=== PATIENT | female | born 1980 | race Caucasian/White ===

== ENCOUNTER 2023-07-27 00:46 | Emergency (ER) | payer OTHER ==
[~2023-07-27] VITALS: Ht 167.6 cm; Wt 146.6 kg
[2023-07-27] MEDS ORDERED: BASA100I SC (07:15)
[2023-07-27] MEDS ORDERED: FURO80TA2 PO (07:15)
[2023-07-27] MEDS ORDERED: NOVOINJ3 SC (07:15)
[2023-07-27] MEDS ORDERED: LEVO112T2 PO (07:15)
[2023-07-27] MEDS ORDERED: cefTRIAXone SOD 1GM VIAL IM ONE (08:00)
[2023-07-27] MEDS ORDERED: LIDOCAINE 1% SDV 5ML VIAL DILUENT ONE (08:00)
[2023-07-27] MEDS ORDERED: GABAPENTIN 300 MG CAP PO ONE (08:00)
[2023-07-27] MEDS ORDERED: BOOSTRIX VACCINE (TETANUS/DIPHTH/ACEL. PERTUSSIS) 0.5ML SYR IM ONE (08:00)
[2023-07-27] MEDS ORDERED: ACETAMINOPHEN 500 MG TAB PO ONE (08:00)
[2023-07-27] MEDS ORDERED: DOXY-443 PO (08:08)
[2023-07-27 08:18] VITALS: BP 148/67; TEMP 97.3; O2SAT 96
== END 2023-07-27 09:00 | disposition home or self-care (01) ==
LOC: M ED 00:46
DX: S91.331A Puncture wound without foreign body, right foot, initial encounter (principal); W26.8XXA Contact with other sharp object(s), not elsewhere classified, initial encounter; Y92.89 Other specified places as the place of occurrence of the external cause; Y93.01 Activity, walking, marching and hiking; Y99.8 Other external cause status; E11.40 Type 2 diabetes mellitus with diabetic neuropathy, unspecified; E03.9 Hypothyroidism, unspecified; Z88.8 Allergy status to other drugs, medicaments and biological substances; Z79.4 Long term (current) use of insulin; Z79.899 Other long term (current) drug therapy
CPT/HCPCS: 90715; 96372; 99283; J0696

== ENCOUNTER 2023-08-22 01:46 | Emergency (ER) | payer OTHER ==
[~2023-08-22] VITALS: Ht 167.6 cm; Wt 145.4 kg
[~2023-08-22 01:46] MED LIST: BASA100I SC; DOXY-443 PO; FURO80TA2 PO; LEVO112T2 PO; NOVOINJ3 SC
[2023-08-22 09:44] LABS: BASO # 0.1 10^3/uL (0.0-0.2); BASO % 0.6 % (0.0-1.0); EOS # 0.2 10^3/uL (0.0-0.5); EOS % 1.9 % (0.0-3.0); HEMATOCRIT 35.9 % (36.0-47.0); LYMPH # 3.1 10^3/uL (1.5-5.0); LYMPH % 29.3 % (24.0-44.0); MEAN CORPUSCULAR HEMOGLOBIN 28.1 pg (27.0-33.0); MEAN CORPUSCULAR HGB CONC 30.6 g/dl (32.0-36.5); MEAN CORPUSCULAR VOLUME 91.6 fl (80.0-96.0); MONO # 0.8 10^3/uL (0.0-0.8); MONO % 7.7 % (2.0-8.0); NEUTROPHILS # 6.3 10^3/uL (1.5-8.5); NEUTROPHILS % 59.7 % (36.0-66.0); PLATELET COUNT, AUTOMATED 368 10^3/uL (150-450); RED BLOOD COUNT 3.92 10^6/uL (4.00-5.40); WHITE BLOOD COUNT 10.6 10^3/uL (4.0-10.0)
[2023-08-22 10:02] LABS: BLOOD UREA NITROGEN 25 MG/DL (9-23); CALCIUM LEVEL 9.2 MG/DL (8.5-10.1); CARBON DIOXIDE LEVEL 30 MMOL/L (20-31); CHLORIDE LEVEL 104 MMOL/L (98-107); CREATININE FOR GFR 0.96 MG/DL (0.55-1.30); GLOMERULAR FILTRATION RATE > 60.0 (>58); GLUCOSE, FASTING 170 MG/DL (60-100); POTASSIUM SERUM 3.8 MMOL/L (3.5-5.1); SODIUM LEVEL 141 MMOL/L (136-145)
[2023-08-22 10:05] LABS: ERYTHROCYTE SEDIMENTATION RATE > 130 mm/hr (0-20)
[2023-08-22] MEDS ORDERED: CEPH500C PO (12:51)
[2023-08-22 13:12] VITALS: BP 176/82; TEMP 97.2; O2SAT 96
[2023-08-26] MEDS ORDERED: DOXY100C3 PO (16:30)
== END 2023-08-22 13:14 | disposition home or self-care (01) ==
LOC: EDBD 01:46 → M ED 01:46
DX: L89.891 Pressure ulcer of other site, stage 1 (principal); I11.0 Hypertensive heart disease with heart failure; R00.2 Palpitations; E11.9 Type 2 diabetes mellitus without complications; Z79.4 Long term (current) use of insulin; E78.5 Hyperlipidemia, unspecified; Z87.891 Personal history of nicotine dependence; Z88.8 Allergy status to other drugs, medicaments and biological substances; Z79.899 Other long term (current) drug therapy

== ENCOUNTER 2023-11-05 01:05 | Emergency (ER) | payer OTHER ==
[~2023-11-05] VITALS: Ht 170.2 cm; Wt 122.7 kg
[~2023-11-05 01:05] MED LIST changes: +CEPH500C PO; +DOXY100C3 PO
[2023-11-05] MEDS ORDERED: PANT40TA29 PO (03:28)
[2023-11-05] MEDS ORDERED: DILT120C78 PO (03:41)
[2023-11-05] MEDS ORDERED: ACET650T15 PO (03:41)
[2023-11-05] MEDS ORDERED: BACTDSTA PO (03:41)
[2023-11-05] MEDS ORDERED: GNP250TA9 PO (03:41)
[2023-11-05] MEDS ORDERED: LOSA25TA13 PO (03:41)
[2023-11-05] MEDS ORDERED: GABA600T4 PO (03:41)
[2023-11-05] MEDS ORDERED: FERR325T3 PO (03:41)
[2023-11-05] MEDS ORDERED: PRED20TA PO (03:41)
[2023-11-05] MEDS ORDERED: SEMA0.257 SQ (03:41)
[2023-11-05 04:14] LABS: BASO % 0.4 % (0.0-1.0); EOS % 0.4 % (0.0-3.0); HEMATOCRIT 31.4 % (36.0-47.0); HEMOGLOBIN 9.8 g/dl (12.0-15.5); LYMPH # 1.2 10^3/uL (1.5-5.0); LYMPH % 12.2 % (24.0-44.0); MEAN CORPUSCULAR HGB CONC 31.2 g/dl (32.0-36.5); MEAN CORPUSCULAR VOLUME 92.9 fl (80.0-96.0); MONO # 0.5 10^3/uL (0.0-0.8); MONO % 5.3 % (2.0-8.0); NEUTROPHILS # 7.3 10^3/uL (1.5-8.5); NEUTROPHILS % 77.6 % (36.0-66.0); PLATELET COUNT, AUTOMATED 246 10^3/uL (150-450); RED BLOOD COUNT 3.38 10^6/uL (4.00-5.40); WHITE BLOOD COUNT 9.4 10^3/uL (4.0-10.0)
[2023-11-05 04:41] LABS: LIPASE 87 U/L (12-53)
[2023-11-05 04:42] LABS: ALBUMIN 2.5 G/DL (3.2-5.2); ALKALINE PHOSPHATASE 88 U/L (46-116); ALT/SGPT 29 U/L (7.0-40); AST/SGOT 15 U/L (<34); BILIRUBIN,DIRECT < 0.1 MG/DL (<0.4); BILIRUBIN,TOTAL 0.3 MG/DL (0.3-1.2); BLOOD UREA NITROGEN 17 MG/DL (9-23); CALCIUM LEVEL 8.7 MG/DL (8.5-10.1); CARBON DIOXIDE LEVEL 23 MMOL/L (20-31); CHLORIDE LEVEL 107 MMOL/L (98-107); CREATININE FOR GFR 0.64 MG/DL (0.55-1.30); GLOMERULAR FILTRATION RATE > 60.0 (>58); GLUCOSE, FASTING 314 MG/DL (60-100); POTASSIUM SERUM 4.5 MMOL/L (3.5-5.1); SODIUM LEVEL 138 MMOL/L (136-145); TOTAL PROTEIN 5.9 G/DL (5.7-8.2)
[2023-11-05 07:48] VITALS: BP 181/83; TEMP 97.5; O2SAT 95
[2023-11-05] MEDS ORDERED: FUROSEMIDE 100MG/10ML VIAL IV ONE (09:00)
== END 2023-11-05 08:12 | disposition home or self-care (01) ==
LOC: M ED 01:05 → EDBD 01:05 → M ED 08:12
DX: R22.41 Localized swelling, mass and lump, right lower limb (principal); Z87.891 Personal history of nicotine dependence; E11.9 Type 2 diabetes mellitus without complications; Z79.4 Long term (current) use of insulin; I11.0 Hypertensive heart disease with heart failure; E78.5 Hyperlipidemia, unspecified; Z88.8 Allergy status to other drugs, medicaments and biological substances; Z79.890 Hormone replacement therapy; Z79.1 Long term (current) use of non-steroidal anti-inflammatories (NSAID); Z79.899 Other long term (current) drug therapy
CPT/HCPCS: 80048; 80076; 83690; 83880; 85025; 93041; 96374; 99285; J1940

== ENCOUNTER 2023-11-09 17:38 | Emergency (ER) | payer OTHER ==
[~2023-11-09 17:38] MED LIST changes: +ACET650T15 PO; +BACTDSTA PO; +DILT120C78 PO; +FERR325T3 PO; +GABA600T4 PO; +GNP250TA9 PO; +LOSA25TA13 PO; +PANT40TA29 PO; +PRED20TA PO; +SEMA0.257 SQ
[2023-11-09 17:56] VITALS: TEMP 98.1
[2023-11-09 18:13] LABS: VENOUS BASE EXCESS 0.4 (-2.0-2.0); VENOUS HCO3 25.8 MMOL/L (23.0-27.0); VENOUS O2 SATURATION 64.9 % (60.0-80.0); VENOUS PARTIAL PRESSURE CO2 44.8 mmHg (38.0-50.0); VENOUS PARTIAL PRESSURE O2 35.7 mmHg (30.0-50.0); VENOUS PH 7.378 UNITS (7.330-7.430); VENOUS STANDARD HCO3 24.1 MMOL/L; VENOUS TOTAL CO2 27.2 MMOL/L (24.0-28.0)
[2023-11-09 18:21] LABS: BASO # 0.1 10^3/uL (0.0-0.2); BASO % 0.7 % (0.0-1.0); EOS % 0.3 % (0.0-3.0); HEMOGLOBIN 11.1 g/dl (12.0-15.5); LYMPH # 2.7 10^3/uL (1.5-5.0); LYMPH % 22.6 % (24.0-44.0); MEAN CORPUSCULAR HEMOGLOBIN 27.8 pg (27.0-33.0); MEAN CORPUSCULAR HGB CONC 30.8 g/dl (32.0-36.5); MEAN CORPUSCULAR VOLUME 90.2 fl (80.0-96.0); NEUTROPHILS # 7.7 10^3/uL (1.5-8.5); NEUTROPHILS % 63.4 % (36.0-66.0); PLATELET COUNT, AUTOMATED 322 10^3/uL (150-450); RED BLOOD COUNT 3.99 10^6/uL (4.00-5.40); WHITE BLOOD COUNT 12.1 10^3/uL (4.0-10.0)
[2023-11-09 18:45] LABS: LIPASE 77 U/L (12-53)
[2023-11-09 18:48] LABS: ACETONE/KETONE 0.12 MMOL/L (0.02-0.27); ALBUMIN 2.9 G/DL (3.2-5.2); ALKALINE PHOSPHATASE 86 U/L (46-116); ALT/SGPT 28 U/L (7.0-40); AST/SGOT 12 U/L (<34); BILIRUBIN,DIRECT < 0.1 MG/DL (<0.4); BILIRUBIN,TOTAL 0.2 MG/DL (0.3-1.2); BLOOD UREA NITROGEN 33 MG/DL (9-23); CALCIUM LEVEL 9.3 MG/DL (8.5-10.1); CARBON DIOXIDE LEVEL 25 MMOL/L (20-31); CHLORIDE LEVEL 103 MMOL/L (98-107); CREATININE FOR GFR 0.76 MG/DL (0.55-1.30); GLOMERULAR FILTRATION RATE > 60.0 (>58); GLUCOSE, FASTING 303 MG/DL (60-100); SODIUM LEVEL 137 MMOL/L (136-145); TOTAL PROTEIN 6.5 G/DL (5.7-8.2)
[2023-11-09 19:27] LABS: HEMOGLOBIN A1c 8.5 % (4.0-6.0)
[2023-11-09] MEDS ORDERED: NS 500 ML IV ONE (19:55)
[2023-11-09] MEDS ORDERED: OXYMETAZOLINE 0.05% NASAL SPRAY (AFRIN) ONE (20:30)
[2023-11-09 21:45] VITALS: BP 175/80; O2SAT 100
== END 2023-11-09 21:45 | disposition home or self-care (01) ==
LOC: M ED 17:38 → EDBD 17:38 → M ED 21:45
DX: R73.9 Hyperglycemia, unspecified (principal); I44.4 Left anterior fascicular block; Z88.8 Allergy status to other drugs, medicaments and biological substances; Z79.890 Hormone replacement therapy; Z79.4 Long term (current) use of insulin; Z79.899 Other long term (current) drug therapy

== ENCOUNTER 2023-11-19 05:00 | Emergency (ER) | payer OTHER ==
[~2023-11-19] VITALS: Ht 167.6 cm; Wt 122.7 kg
[2023-11-19] MEDS ORDERED: SEMA1PEN2 (05:25)
[2023-11-19] MEDS ORDERED: ERGO500029 (05:25)
[2023-11-19] MEDS ORDERED: XARE15TA (05:25)
[2023-11-19] MEDS ORDERED: FURO80TA2 (05:25)
[2023-11-19] MEDS ORDERED: INSULIN (05:25)
[2023-11-19 09:29] LABS: BASO # 0.1 10^3/uL (0.0-0.2); BASO % 0.5 % (0.0-1.0); EOS # 0.1 10^3/uL (0.0-0.5); EOS % 0.6 % (0.0-3.0); HEMATOCRIT 30.7 % (36.0-47.0); HEMOGLOBIN 9.4 g/dl (12.0-15.5); LYMPH % 27.3 % (24.0-44.0); MEAN CORPUSCULAR HEMOGLOBIN 28.1 pg (27.0-33.0); MEAN CORPUSCULAR HGB CONC 30.6 g/dl (32.0-36.5); MEAN CORPUSCULAR VOLUME 91.6 fl (80.0-96.0); MONO # 1.1 10^3/uL (0.0-0.8); MONO % 7.7 % (2.0-8.0); NEUTROPHILS # 8.7 10^3/uL (1.5-8.5); NEUTROPHILS % 59.7 % (36.0-66.0); PLATELET COUNT, AUTOMATED 381 10^3/uL (150-450); RED BLOOD COUNT 3.35 10^6/uL (4.00-5.40); WHITE BLOOD COUNT 14.5 10^3/uL (4.0-10.0)
[2023-11-19 09:48] LABS: HCG, SERUM QUALITATIVE NEGATIVE (NEGATIVE)
[2023-11-19 10:22] VITALS: BP 134/63; TEMP 98.1; O2SAT 99
== END 2023-11-19 10:33 | disposition home or self-care (01) ==
LOC: EDBD 05:00 → M ED 05:00
DX: N92.0 Excessive and frequent menstruation with regular cycle (principal); E11.9 Type 2 diabetes mellitus without complications; I11.0 Hypertensive heart disease with heart failure; I50.9 Heart failure, unspecified; E03.9 Hypothyroidism, unspecified; D64.9 Anemia, unspecified; Z86.718 Personal history of other venous thrombosis and embolism; Z98.84 Bariatric surgery status; Z79.01 Long term (current) use of anticoagulants; Z79.899 Other long term (current) drug therapy; Z79.4 Long term (current) use of insulin

== ENCOUNTER 2023-12-17 07:30 | Emergency (ER) | payer OTHER ==
[~2023-12-17] VITALS: Ht 168.9 cm; Wt 120.6 kg
[~2023-12-17 07:30] MED LIST changes: +ATOR40TA75 PO; +CEFD1CAP9 PO; +DOXY-444 PO; +ERGO500029 PO; +INSU100I59 SQ; +INSULIN; +LEVO125T41 PO; +SEMA1PEN2; +SEMA2PEN SQ; +TREL1AER INH; +XARE15TA
[2023-12-17] MEDS ORDERED: ANOR1AER (07:52)
[2023-12-17] MEDS ORDERED: FAMO20TA5 (07:52)
[2023-12-17] MEDS ORDERED: ALBU2.5V10 (07:52)
[2023-12-17] MEDS ORDERED: OMEP-173 (07:52)
[2023-12-17] MEDS ORDERED: FLUT1BLS8 (07:52)
[2023-12-17] MEDS ORDERED: RACEPINEPHrine 2.25% UD INHAL INH ONE ×3 (08:00→14:50)
[2023-12-17] MEDS ORDERED: PANTOPRAZOLE 40MG VIAL IV ONE (08:00)
[2023-12-17 08:21] LABS: VENOUS BASE EXCESS -0.1 (-2.0-2.0); VENOUS HCO3 26.5 MMOL/L (23.0-27.0); VENOUS O2 SATURATION 62.3 % (60.0-80.0); VENOUS PARTIAL PRESSURE CO2 52.9 mmHg (38.0-50.0); VENOUS PARTIAL PRESSURE O2 35.8 mmHg (30.0-50.0); VENOUS PH 7.318 UNITS (7.330-7.430); VENOUS STANDARD HCO3 23.8 MMOL/L; VENOUS TOTAL CO2 28.1 MMOL/L (24.0-28.0)
[2023-12-17 08:26] LABS: BASO # 0.1 10^3/uL (0.0-0.2); BASO % 0.5 % (0.0-1.0); EOS # 0.1 10^3/uL (0.0-0.5); HEMATOCRIT 30.4 % (36.0-47.0); HEMOGLOBIN 9.2 g/dl (12.0-15.5); LYMPH # 2.3 10^3/uL (1.5-5.0); LYMPH % 20.5 % (24.0-44.0); MEAN CORPUSCULAR HEMOGLOBIN 27.9 pg (27.0-33.0); MEAN CORPUSCULAR HGB CONC 30.3 g/dl (32.0-36.5); MEAN CORPUSCULAR VOLUME 92.1 fl (80.0-96.0); MONO # 0.7 10^3/uL (0.0-0.8); NEUTROPHILS # 7.8 10^3/uL (1.5-8.5); NEUTROPHILS % 71.5 % (36.0-66.0); PLATELET COUNT, AUTOMATED 355 10^3/uL (150-450)
[2023-12-17 08:48] LABS: ALBUMIN 2.9 G/DL (3.2-5.2); ALKALINE PHOSPHATASE 88 U/L (46-116); ALT/SGPT 13 U/L (7.0-40); AST/SGOT < 8 U/L (<34); BILIRUBIN,DIRECT 0.1 MG/DL (<0.4); BILIRUBIN,TOTAL 0.3 MG/DL (0.3-1.2); BLOOD UREA NITROGEN 17 MG/DL (9-23); CALCIUM LEVEL 9.2 MG/DL (8.5-10.1); CARBON DIOXIDE LEVEL 28 MMOL/L (20-31); CHLORIDE LEVEL 103 MMOL/L (98-107); CREATININE FOR GFR 0.79 MG/DL (0.55-1.30); GLOMERULAR FILTRATION RATE > 60.0 (>58); GLUCOSE, FASTING 218 MG/DL (60-100); POTASSIUM SERUM 3.4 MMOL/L (3.5-5.1); SODIUM LEVEL 139 MMOL/L (136-145); TOTAL PROTEIN 7.1 G/DL (5.7-8.2)
[2023-12-17 08:51] LABS: THYROID STIMULATING HORMONE 0.616 uIU/ML (0.55-4.78)
[2023-12-17 11:20] LABS: ABG BASE EXCESS 0.4 (-2.0-2.0); ABG HCO3 24.7 MMOL/L (22.0-26.0); ABG O2 SATURATION 96.1 % (95.0-99.0); ABG PARTIAL PRESSURE CO2 38.7 mmHg (35.0-45.0); ABG PARTIAL PRESSURE O2 84.4 mmHg (75.0-100.0); ABG STANDARD HCO3 24.8 MMOL/L. (22.0-26.0); ABG TOTAL CO2 25.9 MMOL/L (22.0-29.0); ABG pH (ARTERIAL) 7.423 UNITS (7.350-7.450)
[2023-12-17 15:23] VITALS: BP 164/75; TEMP 97.5; O2SAT 97
== END 2023-12-17 15:30 | disposition short-term general hospital (02) ==
LOC: EDBD 07:30 → M ED 07:30
DX: R06.1 Stridor (principal); R00.0 Tachycardia, unspecified; I11.0 Hypertensive heart disease with heart failure; E11.9 Type 2 diabetes mellitus without complications; J44.9 Chronic obstructive pulmonary disease, unspecified; E78.5 Hyperlipidemia, unspecified; J45.909 Unspecified asthma, uncomplicated; G47.33 Obstructive sleep apnea (adult) (pediatric); I50.22 Chronic systolic (congestive) heart failure; E03.9 Hypothyroidism, unspecified; Z88.8 Allergy status to other drugs, medicaments and biological substances; Z91.048 Other nonmedicinal substance allergy status; Z79.899 Other long term (current) drug therapy; Z79.51 Long term (current) use of inhaled steroids; Z79.1 Long term (current) use of non-steroidal anti-inflammatories (NSAID); Z79.4 Long term (current) use of insulin
CPT/HCPCS: 36415; 36600; 71045; 80048; 80076; 82803; 83605; 83880; 84443; 85025; 87040; 87486; 87581; 87633; 87798; 93005; 93041; 94640; 94760; 96374; 99285; C9113

== ENCOUNTER 2023-12-27 12:36 | Emergency (ER) | payer OTHER ==
[~2023-12-27] VITALS: Ht 167.6 cm; Wt 120.9 kg
[~2023-12-27 12:36] MED LIST changes: +ALBU2.5V10; +ANOR1AER; +FAMO20TA5; +FLUT1BLS8; +OMEP-173
[2023-12-27 12:57] VITALS: TEMP 98.4
[2023-12-27 13:56] LABS: BASO % 0.3 % (0.0-1.0); EOS # 0.2 10^3/uL (0.0-0.5); EOS % 1.3 % (0.0-3.0); HEMATOCRIT 26.6 % (36.0-47.0); HEMOGLOBIN 8.2 g/dl (12.0-15.5); LYMPH # 2.3 10^3/uL (1.5-5.0); MEAN CORPUSCULAR HGB CONC 30.8 g/dl (32.0-36.5); MEAN CORPUSCULAR VOLUME 90.8 fl (80.0-96.0); MONO # 0.9 10^3/uL (0.0-0.8); MONO % 7.6 % (2.0-8.0); NEUTROPHILS # 8.4 10^3/uL (1.5-8.5); NEUTROPHILS % 70.6 % (36.0-66.0); PLATELET COUNT, AUTOMATED 401 10^3/uL (150-450); RED BLOOD COUNT 2.93 10^6/uL (4.00-5.40); WHITE BLOOD COUNT 11.9 10^3/uL (4.0-10.0)
[2023-12-27] MEDS: oxyCODONE 5MG TAB PO ONE (14:03)
[2023-12-27] MEDS: NS 500 ML IV ONE (14:03)
[2023-12-27 14:44] LABS: RSV AMPLIFICATION NEGATIVE (NEGATIVE)
[2023-12-27 15:22] LABS: ALBUMIN 2.5 G/DL (3.2-5.2); ALKALINE PHOSPHATASE 73 U/L (46-116); ALT/SGPT 13 U/L (7.0-40); AST/SGOT 12 U/L (<34); BILIRUBIN,DIRECT < 0.1 MG/DL (<0.4); BILIRUBIN,TOTAL 0.2 MG/DL (0.3-1.2); BLOOD UREA NITROGEN 12 MG/DL (9-23); CALCIUM LEVEL 9.1 MG/DL (8.5-10.1); CARBON DIOXIDE LEVEL 30 MMOL/L (20-31); CHLORIDE LEVEL 103 MMOL/L (98-107); CK-MB VALUE MASS < 1.0 NG/ML (<3.6); CPK CREATINE PHOSPHOKINASE 39 U/L (34-145); CREATININE FOR GFR 0.81 MG/DL (0.55-1.30); GLOMERULAR FILTRATION RATE > 60.0 (>58); GLUCOSE, FASTING 155 MG/DL (60-100); MAGNESIUM LEVEL 1.8 MG/DL (1.8-2.4); MB/CK RELATIVE INDEX 2.56 (< OR =4); PROCALCITONIN 0.08 ng/ml; SODIUM LEVEL 138 MMOL/L (136-145); TOTAL PROTEIN 6.2 G/DL (5.7-8.2)
[2023-12-27] MEDS: CEFEPIME HCL 1 GM in D5W MINI-BAG PLUS 50 ML IV ONE (15:44)
[2023-12-27] MEDS: VANCOMYCIN HCL 1,000 MG, VIAL MATE ADAPTER 1 EACH in D5W 250 ML IV ONE (16:53)
[2023-12-27] MEDS: LORazepam 2 MG/ML 1ML VIAL IV STA (19:24)
[2023-12-27] MEDS ORDERED: DOXY100C82 PO (22:19)
[2023-12-27 22:30] VITALS: BP 139/84; O2SAT 97
== END 2023-12-27 22:45 | disposition home or self-care (01) ==
LOC: EDUNIT# 12:36 → EDBD 12:36 → M ED 12:36
DX: J95.00 Unspecified tracheostomy complication (principal); Z88.8 Allergy status to other drugs, medicaments and biological substances; Z91.09 Other allergy status, other than to drugs and biological substances; Z79.899 Other long term (current) drug therapy; Z79.1 Long term (current) use of non-steroidal anti-inflammatories (NSAID); Z79.51 Long term (current) use of inhaled steroids; Z79.4 Long term (current) use of insulin; Z79.84 Long term (current) use of oral hypoglycemic drugs; Z79.2 Long term (current) use of antibiotics
CPT/HCPCS: 71046; 80048; 80076; 82550; 82553; 83605; 83735; 84145; 85025; 86140; 87040; 87070; 87077; 87205; 87631; 93041; 94760; 96365; 96366; 96375; 99285; J0692; J2060; J3370

== ENCOUNTER 2023-12-30 11:14 | Emergency (ER) | payer OTHER ==
[~2023-12-30] VITALS: Ht 168.9 cm; Wt 120.3 kg
[~2023-12-30 11:14] MED LIST changes: +DOXY100C82 PO
[2023-12-30 12:30] LABS: BASO % 0.4 % (0.0-1.0); EOS # 0.2 10^3/uL (0.0-0.5); EOS % 1.3 % (0.0-3.0); HEMATOCRIT 27.1 % (36.0-47.0); HEMOGLOBIN 8.3 g/dl (12.0-15.5); LYMPH # 2.7 10^3/uL (1.5-5.0); LYMPH % 23.9 % (24.0-44.0); MEAN CORPUSCULAR HEMOGLOBIN 27.9 pg (27.0-33.0); MEAN CORPUSCULAR HGB CONC 30.6 g/dl (32.0-36.5); MEAN CORPUSCULAR VOLUME 90.9 fl (80.0-96.0); MONO # 0.9 10^3/uL (0.0-0.8); MONO % 8.4 % (2.0-8.0); NEUTROPHILS # 7.2 10^3/uL (1.5-8.5); NEUTROPHILS % 64.4 % (36.0-66.0); PLATELET COUNT, AUTOMATED 470 10^3/uL (150-450); RED BLOOD COUNT 2.98 10^6/uL (4.00-5.40); WHITE BLOOD COUNT 11.2 10^3/uL (4.0-10.0)
[2023-12-30 12:49] LABS: CK-MB VALUE MASS < 1.0 NG/ML (<3.6)
[2023-12-30 12:53] LABS: THYROID STIMULATING HORMONE 1.575 uIU/ML (0.55-4.78)
[2023-12-30 12:54] LABS: FREE T4 1.77 NG/DL (0.89-1.76)
[2023-12-30 13:02] LABS: BLOOD UREA NITROGEN 19 MG/DL (9-23); CALCIUM LEVEL 8.7 MG/DL (8.5-10.1); CARBON DIOXIDE LEVEL 24 MMOL/L (20-31); CHLORIDE LEVEL 104 MMOL/L (98-107); CPK CREATINE PHOSPHOKINASE 41 U/L (34-145); CREATININE FOR GFR 0.85 MG/DL (0.55-1.30); GLOMERULAR FILTRATION RATE > 60.0 (>58); GLUCOSE, FASTING 248 MG/DL (60-100); MB/CK RELATIVE INDEX 2.43 (< OR =4); POTASSIUM SERUM 4.5 MMOL/L (3.5-5.1); SODIUM LEVEL 138 MMOL/L (136-145)
[2023-12-30 13:11] VITALS: O2SAT 96
[2023-12-30 13:46] LABS: INR 1.07; PARTIAL THROMBOPLASTIN TIME 28.7 SECONDS (24.8-34.2); PROTHROMBIN TIME 13.6 SECONDS (12.5-14.5)
[2023-12-30 14:11] LABS: CK-MB VALUE MASS < 1.0 NG/ML (<3.6)
[2023-12-30 14:16] LABS: CPK CREATINE PHOSPHOKINASE 30 U/L (34-145); MB/CK RELATIVE INDEX 3.33 (< OR =4)
[2023-12-30] MEDS: ONDANSETRON 4MG 2ML VIAL IV ONE (15:42)
[2023-12-30] MEDS: MORPHINE 2 MG/ML 1ML VIAL IV ONE (15:42)
[2023-12-30 20:29] VITALS: TEMP 97.6
[2023-12-30 20:47] VITALS: O2SAT 96
[2023-12-30] MEDS: PERCOCET 5MG/325MG TAB PO ONE (20:47)
[2023-12-30 20:50] VITALS: BP 144/61
== END 2023-12-30 21:25 | disposition short-term general hospital (02) ==
LOC: EDBD 11:14 → M ED 11:14
DX: J95.830 Postprocedural hemorrhage of a respiratory system organ or structure following a respiratory system procedure (principal); J38.6 Stenosis of larynx; J95.09 Other tracheostomy complication; Y72.2 Prosthetic and other implants, materials and accessory otorhinolaryngological devices associated with adverse incidents; R07.9 Chest pain, unspecified; R06.02 Shortness of breath; I50.9 Heart failure, unspecified; J44.9 Chronic obstructive pulmonary disease, unspecified; K21.9 Gastro-esophageal reflux disease without esophagitis; M79.7 Fibromyalgia; Z86.718 Personal history of other venous thrombosis and embolism; Z98.84 Bariatric surgery status; Z88.8 Allergy status to other drugs, medicaments and biological substances; Z91.048 Other nonmedicinal substance allergy status; Z79.899 Other long term (current) drug therapy; Z79.2 Long term (current) use of antibiotics; Z79.4 Long term (current) use of insulin; Z79.890 Hormone replacement therapy; Z79.51 Long term (current) use of inhaled steroids
CPT/HCPCS: 31575; 71045; 80048; 82550; 82553; 83880; 84439; 84443; 85025; 85610; 85730; 93005; 93041; 94760; 96374; 96375; 99285; J2405

== ENCOUNTER 2024-01-10 17:59 | Emergency (ER) | payer OTHER ==
[~2024-01-10] VITALS: Ht 167.6 cm; Wt 120.7 kg
[2024-01-10 19:21] LABS: BASO % 0.4 % (0.0-1.0); EOS # 0.2 10^3/uL (0.0-0.5); EOS % 1.9 % (0.0-3.0); HEMATOCRIT 30.1 % (36.0-47.0); HEMOGLOBIN 9.3 g/dl (12.0-15.5); LYMPH # 2.6 10^3/uL (1.5-5.0); LYMPH % 24.6 % (24.0-44.0); MEAN CORPUSCULAR HGB CONC 30.9 g/dl (32.0-36.5); MEAN CORPUSCULAR VOLUME 90.7 fl (80.0-96.0); MONO # 0.6 10^3/uL (0.0-0.8); NEUTROPHILS # 7.1 10^3/uL (1.5-8.5); NEUTROPHILS % 66.8 % (36.0-66.0); PLATELET COUNT, AUTOMATED 414 10^3/uL (150-450); RED BLOOD COUNT 3.32 10^6/uL (4.00-5.40); WHITE BLOOD COUNT 10.6 10^3/uL (4.0-10.0)
[2024-01-10 19:35] LABS: INR 0.98; PARTIAL THROMBOPLASTIN TIME 22.6 SECONDS (24.8-34.2); PROTHROMBIN TIME 12.7 SECONDS (12.5-14.5)
[2024-01-10 19:45] LABS: BLOOD UREA NITROGEN 23 MG/DL (9-23); CALCIUM LEVEL 9.4 MG/DL (8.5-10.1); CARBON DIOXIDE LEVEL 25 MMOL/L (20-31); CHLORIDE LEVEL 102 MMOL/L (98-107); GLOMERULAR FILTRATION RATE > 60.0 (>58); GLUCOSE, FASTING 177 MG/DL (60-100); POTASSIUM SERUM 4.5 MMOL/L (3.5-5.1); SODIUM LEVEL 137 MMOL/L (136-145)
[2024-01-10] MEDS ORDERED: ISOVUE-370 76% 100ML VIAL As Ordered ONE (19:59)
[2024-01-10 21:21] VITALS: BP 143/67; TEMP 96.9; O2SAT 98
[2024-01-10] MEDS ORDERED: PERC5TAB12 PO (21:23)
[2024-01-10] MEDS: OXYCODONE/APAP 5MG/325MG(HOME DOSE PACK) PO ONE (21:30)
== END 2024-01-10 21:52 | disposition home or self-care (01) ==
LOC: M ED 17:59 → EDBD 17:59 → M ED 21:52
DX: R07.0 Pain in throat (principal); R04.2 Hemoptysis; I50.22 Chronic systolic (congestive) heart failure; J44.9 Chronic obstructive pulmonary disease, unspecified; Z88.8 Allergy status to other drugs, medicaments and biological substances; Z79.1 Long term (current) use of non-steroidal anti-inflammatories (NSAID); Z79.51 Long term (current) use of inhaled steroids; Z79.899 Other long term (current) drug therapy; Z79.4 Long term (current) use of insulin
CPT/HCPCS: 36415; 70498; 71275; 80048; 85025; 85610; 85730; 93041; 94760; 99285; Q9967

== ENCOUNTER 2024-01-20 09:04 | Inpatient (IN) | payer OTHER ==
[~2024-01-20] VITALS: Ht 170.2 cm; Wt 123.6 kg
[~2024-01-20 09:04] MED LIST changes: -ALBU2.5V10; +ALBU2.5V10 INH; -FAMO20TA5; +FAMO20TA5 PO; -FLUT1BLS8; +FLUT1BLS8 INH; -OMEP-173; +OMEP-173 PO; +PERC5TAB12 PO
[2024-01-20] MEDS: IPRATROPIUM 0.5MG/ALBUTEROL 2.5MG INH SOL UD 3ML (DUONEB) NEB PRN (09:47)
[2024-01-20] MEDS: ALBUTEROL SULFATE 2.5MG/0.5ML INH NEB SOLN INH ONE (09:47)
[2024-01-20 09:49] LABS: ABG BASE EXCESS 1.3 (-2.0-2.0); ABG HCO3 24.7 MMOL/L (22.0-26.0); ABG O2 SATURATION 95.9 % (95.0-99.0); ABG PARTIAL PRESSURE CO2 34.8 mmHg (35.0-45.0); ABG PARTIAL PRESSURE O2 79.2 mmHg (75.0-100.0); ABG STANDARD HCO3 25.6 MMOL/L. (22.0-26.0); ABG TOTAL CO2 25.8 MMOL/L (22.0-29.0); ABG pH (ARTERIAL) 7.469 UNITS (7.350-7.450)
[2024-01-20 10:32] LABS: CK-MB VALUE MASS < 1.0 NG/ML (<3.6); CPK CREATINE PHOSPHOKINASE 34 U/L (34-145); MB/CK RELATIVE INDEX 2.94 (< OR =4)
[2024-01-20 10:33] LABS: ALBUMIN 3.5 G/DL (3.2-5.2); ALKALINE PHOSPHATASE 80 U/L (46-116); ALT/SGPT 38 U/L (7.0-40); AST/SGOT 34 U/L (<34); BILIRUBIN,DIRECT < 0.1 MG/DL (<0.4); BILIRUBIN,TOTAL 0.2 MG/DL (0.3-1.2); BLOOD UREA NITROGEN 33 MG/DL (9-23); CALCIUM LEVEL 9.1 MG/DL (8.5-10.1); CARBON DIOXIDE LEVEL 24 MMOL/L (20-31); CHLORIDE LEVEL 104 MMOL/L (98-107); CREATININE FOR GFR 0.78 MG/DL (0.55-1.30); GLOMERULAR FILTRATION RATE > 60.0 (>58); GLUCOSE, FASTING 205 MG/DL (60-100); POTASSIUM SERUM 3.8 MMOL/L (3.5-5.1); SODIUM LEVEL 140 MMOL/L (136-145); TOTAL PROTEIN 7.8 G/DL (5.7-8.2)
[2024-01-20 10:34] LABS: HCG, SERUM QUALITATIVE NEGATIVE (NEGATIVE)
[2024-01-20 10:36] LABS: THYROXINE (T4) 17.4 UG/DL (4.5-10.9)
[2024-01-20 10:37] LABS: THYROID STIMULATING HORMONE 0.211 uIU/ML (0.55-4.78)
[2024-01-20] MEDS: NS 1,000 ML IV ONE ×2 (10:55→14:53)
[2024-01-20] MEDS: ACETAMINOPHEN 325 MG TAB PO ONE (10:55)
[2024-01-20 11:04] LABS: HEMATOCRIT 32.2 % (36.0-47.0); MEAN CORPUSCULAR HGB CONC 31.1 g/dl (32.0-36.5); MEAN CORPUSCULAR VOLUME 90.2 fl (80.0-96.0); PLATELET COUNT, AUTOMATED 361 10^3/uL (150-450); RED BLOOD COUNT 3.57 10^6/uL (4.00-5.40); WHITE BLOOD COUNT 14.9 10^3/uL (4.0-10.0)
[2024-01-20 11:35] LABS: CK-MB VALUE MASS < 1.0 NG/ML (<3.6)
[2024-01-20 11:38] LABS: CPK CREATINE PHOSPHOKINASE 45 U/L (34-145); MB/CK RELATIVE INDEX 2.22 (< OR =4)
[2024-01-20 11:47] LABS: ATYPICAL LYMPH 4 % (0-5); BASOPHILS 1 % (0-1); LYMPHOCYTES 34 % (16-44); MONOCYTES 7 % (0-5); NEUTROPHILS 54 % (28-66)
[2024-01-20 11:48] LABS: PLATELET ESTIMATE INCREASED (NORMAL); POLYCHROMASIA 2+
[2024-01-20] MEDS ORDERED: ISOVUE-370 76% 100ML VIAL As Ordered ONE (11:48)
[2024-01-20 11:49] LABS: ANISOCYTOSIS 2+; HYPOCHROMASIA 2+
[2024-01-20 11:50] LABS: INR 0.99; PROTHROMBIN TIME 12.8 SECONDS (12.5-14.5)
[2024-01-20] MEDS: OSELTAMIVIR PHOSPHATE 75 MG CAP (TAMIFLU) PO ONE (14:53)
[2024-01-20] MEDS ORDERED: IPRATROPIUM 0.5MG/ALBUTEROL 2.5MG INH SOL UD 3ML (DUONEB) NEB PRN (17:10)
[2024-01-20] MEDS ORDERED: DILT240C83 PO (18:49)
[2024-01-20] MEDS ORDERED: DOXY100C3 PO (18:49)
[2024-01-20] MEDS ORDERED: GLUCOSE 4GM CHEW TABLET PO PRN (18:50)
[2024-01-20] MEDS ORDERED: DEXTROSE 50% 50ML SYRINGE IV PRN (18:50)
[2024-01-20] MEDS ORDERED: GLUCAGON INJ 1MG VIAL SC PRN (18:50)
[2024-01-20] MEDS ORDERED: LEVO125T41 PO (18:55)
[2024-01-20] MEDS ORDERED: GUAI600T54 PO (19:00)
[2024-01-20] MEDS ORDERED: MUPI2OI TOP (19:01)
[2024-01-20] MEDS: predniSONE 20 MG TAB PO STA (19:13)
[2024-01-20] MEDS: MAG SULF 1GM/100ML (MAG RUN) 100 ML IV SCH (19:14)
[2024-01-20] MEDS ORDERED: HOME MED LIST COMPLETE! XX SCH (19:15)
[2024-01-20] MEDS ORDERED: MUPIROCIN 2% OINT 22 GM TUBE TOP PRN (19:35)
[2024-01-20] MEDS: IPRATROPIUM 0.5MG/ALBUTEROL 2.5MG INH SOL UD 3ML (DUONEB) NEB SCH (20:19)
[2024-01-20] MEDS: SYMBICORT 160/4.5MCG INHALER 6GM INH SCH (20:19)
[2024-01-20] MEDS: AZITHROMYCIN 250MG TABLET PO SCH (21:25)
[2024-01-20] MEDS: OSELTAMIVIR PHOSPHATE 75 MG CAP (TAMIFLU) PO SCH (21:25)
[2024-01-20] MEDS: FAMOTIDINE 20 MG TAB PO SCH (21:25)
[2024-01-20] MEDS: guaiFENesin ER TABLET 600 MG TAB PO SCH (21:31)
[2024-01-20] MEDS: ENOXAPARIN 40MG/0.4ML SYRINGE (J1650 PER 10MG) SC SCH (21:31)
[2024-01-20 22:30] VITALS: BP 167/79; TEMP 97.1; O2SAT 98
[2024-01-20] MEDS: INSULIN LISPRO (NovoLOG) PER UNIT SC SCH (22:34)
[2024-01-20] MEDS: LEVEMIR (INSULIN DETEMIR) 1 UNITS/0.01ML SC SCH (22:35)
[2024-01-21] VITALS (25 sets, daily range): BP systolic 125–160; BP diastolic 59–82; TEMP 97.2–97.8; O2SAT 92–100
[2024-01-21] MEDS: LEVOTHYROXINE 125MCG TABLET (0.125MG) PO SCH (05:26)
[2024-01-21 06:10] LABS: BASO % 0.2 % (0.0-1.0); EOS % 0.1 % (0.0-3.0); HEMATOCRIT 31.4 % (36.0-47.0); HEMOGLOBIN 9.3 g/dl (12.0-15.5); LYMPH # 3.6 10^3/uL (1.5-5.0); LYMPH % 25.9 % (24.0-44.0); MEAN CORPUSCULAR HEMOGLOBIN 27.7 pg (27.0-33.0); MEAN CORPUSCULAR HGB CONC 29.6 g/dl (32.0-36.5); MEAN CORPUSCULAR VOLUME 93.5 fl (80.0-96.0); MONO # 0.7 10^3/uL (0.0-0.8); MONO % 5.2 % (2.0-8.0); NEUTROPHILS # 9.3 10^3/uL (1.5-8.5); NEUTROPHILS % 67.4 % (36.0-66.0); PLATELET COUNT, AUTOMATED 352 10^3/uL (150-450); RED BLOOD COUNT 3.36 10^6/uL (4.00-5.40); WHITE BLOOD COUNT 13.8 10^3/uL (4.0-10.0)
[2024-01-21 06:27] LABS: BLOOD UREA NITROGEN 24 MG/DL (9-23); CALCIUM LEVEL 8.8 MG/DL (8.5-10.1); CARBON DIOXIDE LEVEL 26 MMOL/L (20-31); CHLORIDE LEVEL 106 MMOL/L (98-107); CREATININE FOR GFR 0.78 MG/DL (0.55-1.30); GLOMERULAR FILTRATION RATE > 60.0 (>58); GLUCOSE, FASTING 253 MG/DL (60-100); MAGNESIUM LEVEL 2.4 MG/DL (1.8-2.4); SODIUM LEVEL 138 MMOL/L (136-145)
[2024-01-21] MEDS: TIOTROPIUM INHALER/CAPSULE (SPIRIVA) INH SCH (07:33)
[2024-01-21] MEDS: INSULIN LISPRO (NovoLOG) PER UNIT SC SCH (08:53)
[2024-01-21] MEDS: ACETAMINOPHEN TAB 650MG DOSE (2X325MG) PO PRN (08:54)
[2024-01-21] MEDS: OMEPRAZOLE 20MG CAP PO SCH (08:56)
[2024-01-21] MEDS: dilTIAZem 120MG **CD** CAPSULE PO SCH (08:56)
[2024-01-21] MEDS: predniSONE 20 MG TAB PO SCH (08:57)
[2024-01-21] MEDS: LOSARTAN 25 MG TAB PO SCH (08:57)
[2024-01-21] MEDS: methylPREDNISolone 125MG 2ML VIAL IV SCH (17:13)
[2024-01-21] MEDS: IPRATROPIUM 0.5MG/ALBUTEROL 2.5MG INH SOL UD 3ML (DUONEB) NEB SCH (23:31)
[2024-01-22] VITALS (30 sets, daily range): BP systolic 122–191; BP diastolic 62–83; TEMP 97.1–98.8; O2SAT 94–100
[2024-01-22] MEDS: LEVOTHYROXINE 150MCG TABLET (0.15MG) PO SCH (05:47)
[2024-01-22 05:51] LABS: BASO % 0.1 % (0.0-1.0); HEMOGLOBIN 9.5 g/dl (12.0-15.5); LYMPH % 8.9 % (24.0-44.0); MEAN CORPUSCULAR HEMOGLOBIN 27.6 pg (27.0-33.0); MEAN CORPUSCULAR HGB CONC 30.6 g/dl (32.0-36.5); MEAN CORPUSCULAR VOLUME 90.1 fl (80.0-96.0); MONO # 0.2 10^3/uL (0.0-0.8); MONO % 1.5 % (2.0-8.0); NEUTROPHILS # 10.2 10^3/uL (1.5-8.5); NEUTROPHILS % 88.4 % (36.0-66.0); PLATELET COUNT, AUTOMATED 349 10^3/uL (150-450); RED BLOOD COUNT 3.44 10^6/uL (4.00-5.40); WHITE BLOOD COUNT 11.6 10^3/uL (4.0-10.0)
[2024-01-22 06:17] LABS: BLOOD UREA NITROGEN 25 MG/DL (9-23); CALCIUM LEVEL 8.9 MG/DL (8.5-10.1); CARBON DIOXIDE LEVEL 22 MMOL/L (20-31); CHLORIDE LEVEL 104 MMOL/L (98-107); CREATININE FOR GFR 0.72 MG/DL (0.55-1.30); GLOMERULAR FILTRATION RATE > 60.0 (>58); GLUCOSE, FASTING 419 MG/DL (60-100); MAGNESIUM LEVEL 2.3 MG/DL (1.8-2.4); POTASSIUM SERUM 4.6 MMOL/L (3.5-5.1); SODIUM LEVEL 134 MMOL/L (136-145)
[2024-01-22] MEDS: FUROSEMIDE 80 MG TAB PO SCH (08:14)
[2024-01-22] MEDS: INSULIN LISPRO (NovoLOG) PER UNIT SC SCH ×4 (08:16→20:44)
[2024-01-22] MEDS: LORazepam 0.5 MG TAB PO PRN (09:57)
[2024-01-22] MEDS: ENOXAPARIN 40MG/0.4ML SYRINGE (J1650 PER 10MG) SC SCH (09:57)
[2024-01-22 11:04] LABS: HEMOGLOBIN A1c 7.9 % (4.0-6.0)
[2024-01-22] MEDS ORDERED: INSULIN LISPRO (NovoLOG) PER UNIT SC SCH ×2 (12:00→21:00)
[2024-01-22] MEDS: guaiFENesin/CODEINE SYRUP 5 ML UDC PO SCH (12:00)
[2024-01-22] MEDS: methylPREDNISolone 125MG 2ML VIAL IV SCH (20:25)
[2024-01-22] MEDS: LEVEMIR (INSULIN DETEMIR) 1 UNITS/0.01ML SC SCH (20:34)
[2024-01-23 01:00] VITALS: BP 141/62; O2SAT 100
[2024-01-23 05:55] VITALS: BP 152/73; TEMP 98.8; O2SAT 99
[2024-01-23 07:04] LABS: BASO % 0.1 % (0.0-1.0); HEMATOCRIT 28.9 % (36.0-47.0); HEMOGLOBIN 8.6 g/dl (12.0-15.5); LYMPH # 0.9 10^3/uL (1.5-5.0); LYMPH % 7.7 % (24.0-44.0); MEAN CORPUSCULAR HEMOGLOBIN 27.3 pg (27.0-33.0); MEAN CORPUSCULAR HGB CONC 29.8 g/dl (32.0-36.5); MEAN CORPUSCULAR VOLUME 91.7 fl (80.0-96.0); MONO # 0.5 10^3/uL (0.0-0.8); MONO % 4.3 % (2.0-8.0); NEUTROPHILS # 9.9 10^3/uL (1.5-8.5); NEUTROPHILS % 86.7 % (36.0-66.0); PLATELET COUNT, AUTOMATED 293 10^3/uL (150-450); RED BLOOD COUNT 3.15 10^6/uL (4.00-5.40); WHITE BLOOD COUNT 11.5 10^3/uL (4.0-10.0)
[2024-01-23 07:45] LABS: BLOOD UREA NITROGEN 36 MG/DL (9-23); CALCIUM LEVEL 8.7 MG/DL (8.5-10.1); CARBON DIOXIDE LEVEL 20 MMOL/L (20-31); CHLORIDE LEVEL 104 MMOL/L (98-107); CREATININE FOR GFR 0.84 MG/DL (0.55-1.30); GLOMERULAR FILTRATION RATE > 60.0 (>58); GLUCOSE, FASTING 515 MG/DL (60-100); MAGNESIUM LEVEL 2.2 MG/DL (1.8-2.4); POTASSIUM SERUM 4.6 MMOL/L (3.5-5.1); SODIUM LEVEL 135 MMOL/L (136-145)
[2024-01-23] MEDS: predniSONE 20 MG TAB PO SCH (08:09)
[2024-01-23 14:00] VITALS: TEMP 98.1; O2SAT 96
[2024-01-23] MEDS: BENZONATATE 100MG CAPSULE PO SCH (14:39)
[2024-01-23] MEDS ORDERED: VARIBAR NECTAR 40% w/v 240ML SUSP BTL As Ordered ONE (15:09)
[2024-01-23] MEDS ORDERED: BARIUM SULFATE 700 MG TABLET (E-Z-DISK) As Ordered ONE (15:09)
[2024-01-23] MEDS ORDERED: E-Z-PAQUE 96% w/w SUSP 176GM BTL As Ordered ONE (15:09)
[2024-01-23] MEDS ORDERED: VARIBAR PUDDING 40% w/v 230ML TUBE As Ordered ONE (15:09)
[2024-01-23] MEDS: guaiFENesin/CODEINE SYRUP 5 ML UDC PO SCH (17:40)
[2024-01-23] MEDS: INSULIN LISPRO (NovoLOG) PER UNIT SC SCH (17:50)
[2024-01-23 20:05] VITALS: BP 124/56; TEMP 98.6; O2SAT 99
[2024-01-23] MEDS: LEVEMIR (INSULIN DETEMIR) 1 UNITS/0.01ML SC SCH (20:31)
[2024-01-23] MEDS ORDERED: LEVEMIR (INSULIN DETEMIR) 1 UNITS/0.01ML SC SCH (21:00)
[2024-01-23 22:30] VITALS: BP 147/65; TEMP 98.4; O2SAT 98
[2024-01-24] VITALS (8 sets, daily range): BP systolic 115–128; BP diastolic 58–71; TEMP 97.7–98.1; O2SAT 98–100
[2024-01-24 06:37] LABS: BASO % 0.2 % (0.0-1.0); EOS % 0.2 % (0.0-3.0); HEMATOCRIT 29.9 % (36.0-47.0); LYMPH # 4.8 10^3/uL (1.5-5.0); LYMPH % 33.3 % (24.0-44.0); MEAN CORPUSCULAR HEMOGLOBIN 27.4 pg (27.0-33.0); MEAN CORPUSCULAR HGB CONC 30.1 g/dl (32.0-36.5); MEAN CORPUSCULAR VOLUME 91.2 fl (80.0-96.0); MONO # 1.3 10^3/uL (0.0-0.8); MONO % 8.9 % (2.0-8.0); NEUTROPHILS # 8.2 10^3/uL (1.5-8.5); NEUTROPHILS % 56.4 % (36.0-66.0); RED BLOOD COUNT 3.28 10^6/uL (4.00-5.40); WHITE BLOOD COUNT 14.5 10^3/uL (4.0-10.0)
[2024-01-24 06:43] LABS: BLOOD UREA NITROGEN 39 MG/DL (9-23); CALCIUM LEVEL 9.2 MG/DL (8.5-10.1); CARBON DIOXIDE LEVEL 22 MMOL/L (20-31); CHLORIDE LEVEL 106 MMOL/L (98-107); CREATININE FOR GFR 0.86 MG/DL (0.55-1.30); GLOMERULAR FILTRATION RATE > 60.0 (>58); GLUCOSE, FASTING 229 MG/DL (60-100); MAGNESIUM LEVEL 2.2 MG/DL (1.8-2.4); POTASSIUM SERUM 3.8 MMOL/L (3.5-5.1); SODIUM LEVEL 138 MMOL/L (136-145)
[2024-01-24 07:15] LABS: PLATELET COUNT, AUTOMATED 300 10^3/uL (150-450)
[2024-01-24] MEDS: LORazepam 1 MG TAB PO SCH (12:44)
[2024-01-24 15:52] LABS: HEMOGLOBIN 8.9 g/dl (12.0-15.5); MEAN CORPUSCULAR HEMOGLOBIN 27.6 pg (27.0-33.0); MEAN CORPUSCULAR HGB CONC 29.7 g/dl (32.0-36.5); MEAN CORPUSCULAR VOLUME 92.9 fl (80.0-96.0); PLATELET COUNT, AUTOMATED 275 10^3/uL (150-450); RED BLOOD COUNT 3.23 10^6/uL (4.00-5.40); WHITE BLOOD COUNT 13.4 10^3/uL (4.0-10.0)
[2024-01-24] MEDS: oxyCODONE 5MG TAB PO PRN (20:17)
[2024-01-25] VITALS (8 sets, daily range): BP systolic 134–154; BP diastolic 60–78; TEMP 97.9–98.8; O2SAT 96–99
[2024-01-25 07:22] LABS: HEMATOCRIT 30.7 % (36.0-47.0); HEMOGLOBIN 9.1 g/dl (12.0-15.5); MEAN CORPUSCULAR HEMOGLOBIN 27.4 pg (27.0-33.0); MEAN CORPUSCULAR HGB CONC 29.6 g/dl (32.0-36.5); MEAN CORPUSCULAR VOLUME 92.5 fl (80.0-96.0); PLATELET COUNT, AUTOMATED 229 10^3/uL (150-450); RED BLOOD COUNT 3.32 10^6/uL (4.00-5.40); WHITE BLOOD COUNT 13.5 10^3/uL (4.0-10.0)
[2024-01-25 07:47] LABS: BLOOD UREA NITROGEN 36 MG/DL (9-23); CALCIUM LEVEL 8.5 MG/DL (8.5-10.1); CARBON DIOXIDE LEVEL 25 MMOL/L (20-31); CHLORIDE LEVEL 110 MMOL/L (98-107); CREATININE FOR GFR 0.92 MG/DL (0.55-1.30); GLOMERULAR FILTRATION RATE > 60.0 (>58); GLUCOSE, FASTING 209 MG/DL (60-100); MAGNESIUM LEVEL 2.1 MG/DL (1.8-2.4); POTASSIUM SERUM 3.8 MMOL/L (3.5-5.1); SODIUM LEVEL 143 MMOL/L (136-145)
[2024-01-25 07:55] LABS: ATYPICAL LYMPH 1 % (0-5); LYMPHOCYTES 50 % (16-44); MONOCYTES 4 % (0-5); MYELOCYTES 1 % (0-0); NEUTROPHILS 44 % (28-66)
[2024-01-25 07:56] LABS: ANISOCYTOSIS 1+; POLYCHROMASIA 1+
[2024-01-25 07:57] LABS: PLATELET CLUMPS SMALL AMT; PLATELET ESTIMATE NORMAL (NORMAL)
[2024-01-25 07:58] LABS: TEAR DROP CELLS 1+
[2024-01-25] MEDS: oxyCODONE 5MG TAB PO PRN (10:19)
[2024-01-25] MEDS: SODIUM CHLORIDE HYPERTONIC 3% 4ML NEB SOL INH SCH (12:00)
[2024-01-25] MEDS: ALBUTEROL SULFATE 2.5MG/0.5ML INH NEB SOLN NEB SCH (13:09)
[2024-01-25] MEDS: TRANEXAMIC ACID 100 MG/ML 10ML VIAL NEB SCH (13:09)
[2024-01-25] MEDS: CALCIUM CARBONATE 500 MG CHEW U/D PO PRN (13:38)
[2024-01-26] VITALS (7 sets, daily range): BP systolic 121–141; BP diastolic 52–68; TEMP 97.9–98.1; O2SAT 93–98
[2024-01-26 06:27] LABS: HEMATOCRIT 30.8 % (36.0-47.0); HEMOGLOBIN 9.2 g/dl (12.0-15.5); MEAN CORPUSCULAR HEMOGLOBIN 27.6 pg (27.0-33.0); MEAN CORPUSCULAR HGB CONC 29.9 g/dl (32.0-36.5); MEAN CORPUSCULAR VOLUME 92.5 fl (80.0-96.0); PLATELET COUNT, AUTOMATED 246 10^3/uL (150-450); RED BLOOD COUNT 3.33 10^6/uL (4.00-5.40); WHITE BLOOD COUNT 13.1 10^3/uL (4.0-10.0)
[2024-01-26 06:56] LABS: BLOOD UREA NITROGEN 36 MG/DL (9-23); CALCIUM LEVEL 8.9 MG/DL (8.5-10.1); CARBON DIOXIDE LEVEL 25 MMOL/L (20-31); CHLORIDE LEVEL 111 MMOL/L (98-107); CREATININE FOR GFR 0.87 MG/DL (0.55-1.30); GLOMERULAR FILTRATION RATE > 60.0 (>58); GLUCOSE, FASTING 153 MG/DL (60-100); MAGNESIUM LEVEL 2.1 MG/DL (1.8-2.4); SODIUM LEVEL 143 MMOL/L (136-145)
[2024-01-26 07:10] LABS: LYMPHOCYTES 44 % (16-44); METAMYELOCYTES 1 % (0-0); MONOCYTES 2 % (0-5); NEUTROPHILS 53 % (28-66)
[2024-01-26 07:14] LABS: ANISOCYTOSIS 1+; PLATELET CLUMPS SMALL AMT; PLATELET ESTIMATE NORMAL (NORMAL); TEAR DROP CELLS 1+
[2024-01-26 07:16] LABS: POLYCHROMASIA 1+
[2024-01-26] MEDS: INSULIN LISPRO (NovoLOG) PER UNIT SC SCH (08:36)
[2024-01-27 03:11] VITALS: O2SAT 100
[2024-01-27 05:34] VITALS: BP 143/70; TEMP 97.5; O2SAT 98
[2024-01-27 06:47] LABS: BASO % 0.1 % (0.0-1.0); EOS # 0.2 10^3/uL (0.0-0.5); EOS % 1.1 % (0.0-3.0); HEMATOCRIT 29.1 % (36.0-47.0); HEMOGLOBIN 8.7 g/dl (12.0-15.5); LYMPH # 5.9 10^3/uL (1.5-5.0); LYMPH % 38.7 % (24.0-44.0); MEAN CORPUSCULAR HEMOGLOBIN 27.5 pg (27.0-33.0); MEAN CORPUSCULAR HGB CONC 29.9 g/dl (32.0-36.5); MEAN CORPUSCULAR VOLUME 92.1 fl (80.0-96.0); MONO # 1.1 10^3/uL (0.0-0.8); NEUTROPHILS % 52.2 % (36.0-66.0); PLATELET COUNT, AUTOMATED 230 10^3/uL (150-450); RED BLOOD COUNT 3.16 10^6/uL (4.00-5.40); WHITE BLOOD COUNT 15.2 10^3/uL (4.0-10.0)
[2024-01-27 07:14] LABS: BLOOD UREA NITROGEN 34 MG/DL (9-23); CALCIUM LEVEL 8.6 MG/DL (8.5-10.1); CARBON DIOXIDE LEVEL 27 MMOL/L (20-31); CHLORIDE LEVEL 109 MMOL/L (98-107); CREATININE FOR GFR 0.88 MG/DL (0.55-1.30); GLOMERULAR FILTRATION RATE > 60.0 (>58); GLUCOSE, FASTING 156 MG/DL (60-100); POTASSIUM SERUM 3.8 MMOL/L (3.5-5.1); SODIUM LEVEL 141 MMOL/L (136-145)
[2024-01-27 07:27] VITALS: O2SAT 98
[2024-01-27] MEDS ORDERED: diphenhydrAMINE CREAM 30GM TOP PRN (08:00)
[2024-01-27] MEDS: VANICREAM MOISTURIZING SKIN CREAM 113GM TUBE TOP SCH (09:00)
[2024-01-27] MEDS: INSULIN LISPRO (NovoLOG) PER UNIT SC SCH (09:54)
[2024-01-27] MEDS: CETIRIZINE (ZyrTEC) 10 MG TAB PO SCH (09:55)
[2024-01-27 13:01] VITALS: O2SAT 98
[2024-01-27 14:00] VITALS: BP 142/62; TEMP 97.9; O2SAT 95
[2024-01-27 18:45] LABS: FREE T4 1.23 NG/DL (0.89-1.76); THYROID STIMULATING HORMONE 0.226 uIU/ML (0.55-4.78)
[2024-01-27 22:00] VITALS: BP 126/72; TEMP 97.4; O2SAT 96
[2024-01-28] MEDS: LEVOTHYROXINE 100MCG TABLET (0.1MG) PO SCH (06:05)
[2024-01-28 06:39] VITALS: BP 165/81; TEMP 98.1; O2SAT 90
[2024-01-28 06:41] LABS: BASO % 0.1 % (0.0-1.0); EOS # 0.1 10^3/uL (0.0-0.5); EOS % 0.8 % (0.0-3.0); HEMATOCRIT 31.4 % (36.0-47.0); HEMOGLOBIN 9.4 g/dl (12.0-15.5); LYMPH # 5.2 10^3/uL (1.5-5.0); LYMPH % 35.5 % (24.0-44.0); MEAN CORPUSCULAR HEMOGLOBIN 27.4 pg (27.0-33.0); MEAN CORPUSCULAR HGB CONC 29.9 g/dl (32.0-36.5); MEAN CORPUSCULAR VOLUME 91.5 fl (80.0-96.0); MONO % 6.7 % (2.0-8.0); NEUTROPHILS # 8.2 10^3/uL (1.5-8.5); NEUTROPHILS % 55.7 % (36.0-66.0); PLATELET COUNT, AUTOMATED 215 10^3/uL (150-450); RED BLOOD COUNT 3.43 10^6/uL (4.00-5.40); WHITE BLOOD COUNT 14.7 10^3/uL (4.0-10.0)
[2024-01-28 07:18] LABS: BLOOD UREA NITROGEN 33 MG/DL (9-23); CALCIUM LEVEL 8.4 MG/DL (8.5-10.1); CARBON DIOXIDE LEVEL 26 MMOL/L (20-31); CHLORIDE LEVEL 111 MMOL/L (98-107); CREATININE FOR GFR 0.81 MG/DL (0.55-1.30); GLOMERULAR FILTRATION RATE > 60.0 (>58); GLUCOSE, FASTING 175 MG/DL (60-100); POTASSIUM SERUM 3.8 MMOL/L (3.5-5.1); SODIUM LEVEL 143 MMOL/L (136-145)
[2024-01-28] MEDS: MIRALAX *UNIT DOSE* 17GM PACKET PO SCH (08:27)
[2024-01-28] MEDS: METAMUCIL (PSYLLIUM) PACKET PO SCH (08:29)
[2024-01-28] MEDS: SENNA 8.6 MG TAB (SENOKOT) PO SCH (12:00)
[2024-01-28 21:15] VITALS: BP 129/57; TEMP 97.7; O2SAT 96
[2024-01-29 05:22] VITALS: BP 124/59; TEMP 97.7; O2SAT 100
[2024-01-29 09:29] LABS: HEMOGLOBIN 9.6 g/dl (12.0-15.5)
[2024-01-29 15:06] VITALS: BP 128/62; TEMP 97.5; O2SAT 98
[2024-01-29] MEDS: guaiFENesin DM *SUGAR FREE* 5ML**DIABETIC TUSSIN DM PO PRN (17:50)
[2024-01-29 22:12] VITALS: BP 131/59; TEMP 98.1; O2SAT 97
[2024-01-30] VITALS (9 sets, daily range): BP systolic 106–127; BP diastolic 45–60; TEMP 97–98.1; O2SAT 97–100
[2024-01-30 07:56] LABS: BASO % 0.3 % (0.0-1.0); EOS # 0.2 10^3/uL (0.0-0.5); EOS % 1.4 % (0.0-3.0); HEMATOCRIT 29.4 % (36.0-47.0); HEMOGLOBIN 8.8 g/dl (12.0-15.5); LYMPH # 3.4 10^3/uL (1.5-5.0); LYMPH % 28.6 % (24.0-44.0); MEAN CORPUSCULAR HEMOGLOBIN 27.2 pg (27.0-33.0); MEAN CORPUSCULAR HGB CONC 29.9 g/dl (32.0-36.5); MONO # 0.9 10^3/uL (0.0-0.8); MONO % 7.9 % (2.0-8.0); NEUTROPHILS # 7.1 10^3/uL (1.5-8.5); PLATELET COUNT, AUTOMATED 216 10^3/uL (150-450); RED BLOOD COUNT 3.23 10^6/uL (4.00-5.40); WHITE BLOOD COUNT 11.7 10^3/uL (4.0-10.0)
[2024-01-30 08:34] LABS: BLOOD UREA NITROGEN 24 MG/DL (9-23); CALCIUM LEVEL 8.6 MG/DL (8.5-10.1); CARBON DIOXIDE LEVEL 25 MMOL/L (20-31); CHLORIDE LEVEL 111 MMOL/L (98-107); CREATININE FOR GFR 0.74 MG/DL (0.55-1.30); GLOMERULAR FILTRATION RATE > 60.0 (>58); GLUCOSE, FASTING 190 MG/DL (60-100); MAGNESIUM LEVEL 1.8 MG/DL (1.8-2.4); POTASSIUM SERUM 3.7 MMOL/L (3.5-5.1); SODIUM LEVEL 143 MMOL/L (136-145)
[2024-01-30] MEDS ORDERED: CETACAINE SPRAY 5GM As Ordered ONE (10:09)
[2024-01-30] MEDS ORDERED: EPINEPHrine 1MG/10ML SYRINGE 1.5IN As Ordered ONE (10:10)
[2024-01-30] MEDS ORDERED: LIDOCAINE 1% SDV 30ML VIAL As Ordered ONE (13:54)
[2024-01-30] MEDS ORDERED: LIDOCAINE 4% TOPICAL SOLN 50 ML BTL As Ordered ONE (13:56)
[2024-01-30] MEDS ORDERED: OXYMETAZOLINE 0.05% NASAL SPRAY (AFRIN) As Ordered ONE (14:10)
[2024-01-30] MEDS ORDERED: MIDAZOLAM INJ 2MG/2ML VIAL As Ordered ONE (14:44)
[2024-01-30] MEDS ORDERED: ONDANSETRON 4MG 2ML VIAL As Ordered ONE (14:44)
[2024-01-30] MEDS ORDERED: fentaNYL 100 MCG/2 ML INJECTION As Ordered ONE (14:44)
[2024-01-30] MEDS ORDERED: propofoL 200 MG/20 ML VIAL As Ordered ONE (14:44)
[2024-01-30] MEDS ORDERED: LIDOCAINE 2% 100MG/5ML SDV (FOR ANES.) As Ordered ONE (14:44)
[2024-01-30] MEDS ORDERED: fentaNYL 100 MCG/2 ML INJECTION IV PRN (15:00)
[2024-01-30] MEDS ORDERED: DEXTROSE 50% 50ML SYRINGE IV PRN (15:00)
[2024-01-30] MEDS ORDERED: INSULIN LISPRO (NovoLOG) PER UNIT SC PRN (15:00)
[2024-01-30] MEDS ORDERED: GLUCOSE 4GM CHEW TABLET PO PRN (15:00)
[2024-01-30] MEDS ORDERED: GLUCAGON INJ 1MG VIAL SC PRN (15:00)
[2024-01-30] MEDS: ACETAMINOPHEN *IV* 1,000 MG in IV 1 EA IV STA (15:07)
[2024-01-30] MEDS: ONDANSETRON 4MG 2ML VIAL IV PRN (15:56)
[2024-01-31 05:32] VITALS: BP 103/61; TEMP 98.2; O2SAT 96
[2024-01-31 07:05] LABS: BASO % 0.3 % (0.0-1.0); EOS # 0.2 10^3/uL (0.0-0.5); EOS % 1.6 % (0.0-3.0); HEMOGLOBIN 8.6 g/dl (12.0-15.5); LYMPH # 3.2 10^3/uL (1.5-5.0); LYMPH % 29.2 % (24.0-44.0); MEAN CORPUSCULAR HGB CONC 29.7 g/dl (32.0-36.5); MEAN CORPUSCULAR VOLUME 91.2 fl (80.0-96.0); MONO # 0.9 10^3/uL (0.0-0.8); NEUTROPHILS # 6.5 10^3/uL (1.5-8.5); NEUTROPHILS % 60.3 % (36.0-66.0); PLATELET COUNT, AUTOMATED 232 10^3/uL (150-450); RED BLOOD COUNT 3.18 10^6/uL (4.00-5.40); WHITE BLOOD COUNT 10.8 10^3/uL (4.0-10.0)
[2024-01-31 07:38] LABS: BLOOD UREA NITROGEN 17 MG/DL (9-23); CALCIUM LEVEL 8.6 MG/DL (8.5-10.1); CARBON DIOXIDE LEVEL 29 MMOL/L (20-31); CHLORIDE LEVEL 105 MMOL/L (98-107); CREATININE FOR GFR 0.83 MG/DL (0.55-1.30); GLOMERULAR FILTRATION RATE > 60.0 (>58); GLUCOSE, FASTING 228 MG/DL (60-100); MAGNESIUM LEVEL 1.6 MG/DL (1.8-2.4); POTASSIUM SERUM 3.7 MMOL/L (3.5-5.1); SODIUM LEVEL 140 MMOL/L (136-145)
[2024-01-31] MEDS: LEVEMIR (INSULIN DETEMIR) 1 UNITS/0.01ML SC ONE (09:36)
[2024-01-31 10:32] LABS: HEMATOCRIT 28.2 % (36.0-47.0); HEMOGLOBIN 8.5 g/dl (12.0-15.5)
[2024-01-31] MEDS: MAG SULF 1GM/100ML (MAG RUN) 1 GM in IV 1 EA IV ONE (13:12)
[2024-01-31] MEDS: MAGNESIUM OXIDE 400MG TAB (MAG-OX) PO ONE (13:12)
[2024-01-31] MEDS ORDERED: INSU100I59 SQ (13:29)
[2024-01-31] MEDS ORDERED: HUMA100I5 SC (13:29)
[2024-01-31 14:00] VITALS: BP 107/60; TEMP 98.1; O2SAT 98
[2024-01-31] MEDS ORDERED: OXYC-517 PO (16:22)
[2024-01-31] MEDS ORDERED: LEVO100T5 PO (16:22)
== END 2024-01-31 17:25 | disposition home health service (06) | DRG 113 ==
LOC: EDBD 09:04 → M ED 09:04 → M ED INP 17:05 → INTOOBSV 17:05 → ENRESERV 20:41 → M PCU 22:20 → OBSVTOIN 01-21 10:08 → M MS5PR 01-23 00:55
PROVIDERS: ADMIT Internal Medicine; ATTEND Student in an Organized Health Care Education/Training Program
PROC: 0CJS8ZZ Inspection of Larynx, Via Natural or Artificial Opening Endoscopic (ICD-10-PCS; principal; 2024-01-24)
PROC: 0B21XFZ Change Tracheostomy Device in Trachea, External Approach (ICD-10-PCS; 2024-01-30)
PROC: 0BJ08ZZ Inspection of Tracheobronchial Tree, Via Natural or Artificial Opening Endoscopic (ICD-10-PCS; 2024-01-30 12:00)
DX: J10.1 Influenza due to other identified influenza virus with other respiratory manifestations (principal); E87.20 Acidosis, unspecified; Z93.0 Tracheostomy status; J38.00 Paralysis of vocal cords and larynx, unspecified; I11.0 Hypertensive heart disease with heart failure; E11.65 Type 2 diabetes mellitus with hyperglycemia; I50.32 Chronic diastolic (congestive) heart failure; J38.6 Stenosis of larynx; J44.1 Chronic obstructive pulmonary disease with (acute) exacerbation; J45.901 Unspecified asthma with (acute) exacerbation; Z68.41 Body mass index [BMI] 40.0-44.9, adult; R13.10 Dysphagia, unspecified; I47.10 Supraventricular tachycardia, unspecified; R04.2 Hemoptysis; E78.5 Hyperlipidemia, unspecified; E03.9 Hypothyroidism, unspecified; M79.7 Fibromyalgia; R91.8 Other nonspecific abnormal finding of lung field; E05.90 Thyrotoxicosis, unspecified without thyrotoxic crisis or storm; E66.9 Obesity, unspecified; F41.9 Anxiety disorder, unspecified; Z79.4 Long term (current) use of insulin; Z79.52 Long term (current) use of systemic steroids; Z79.890 Hormone replacement therapy; Z79.899 Other long term (current) drug therapy; Z88.8 Allergy status to other drugs, medicaments and biological substances; Z91.048 Other nonmedicinal substance allergy status; T38.1X5A Adverse effect of thyroid hormones and substitutes, initial encounter; Z98.84 Bariatric surgery status; Z86.718 Personal history of other venous thrombosis and embolism; Z89.422 Acquired absence of other left toe(s); Z87.891 Personal history of nicotine dependence

== ENCOUNTER 2024-03-14 01:52 | Emergency (ER) | payer MEDICAID, OTHER ==
[~2024-03-14] VITALS: Ht 170.2 cm; Wt 125.9 kg
[~2024-03-14 01:52] MED LIST changes: +DILT240C83 PO; +GUAI600T54 PO; +HUMA100I5 SC; +LEVO100T5 PO; +MUPI2OI TOP; +OXYC-517 PO
[2024-03-14 02:37] LABS: HEMATOCRIT 34.3 % (36.0-47.0); HEMOGLOBIN 10.6 g/dl (12.0-15.5); MEAN CORPUSCULAR HGB CONC 30.9 g/dl (32.0-36.5); MEAN CORPUSCULAR VOLUME 87.3 fl (80.0-96.0); PLATELET COUNT, AUTOMATED 373 10^3/uL (150-450); RED BLOOD COUNT 3.93 10^6/uL (4.00-5.40); WHITE BLOOD COUNT 12.7 10^3/uL (4.0-10.0)
[2024-03-14] MEDS: NS 1,000 ML IV SCH (03:45)
[2024-03-14 06:47] VITALS: BP 141/71; TEMP 97.7; O2SAT 100
== END 2024-03-14 06:51 | disposition short-term general hospital (02) ==
LOC: M ED 01:52
DX: T88.9XXA Complication of surgical and medical care, unspecified, initial encounter (principal); I11.0 Hypertensive heart disease with heart failure; I50.22 Chronic systolic (congestive) heart failure; Z88.8 Allergy status to other drugs, medicaments and biological substances; Z79.1 Long term (current) use of non-steroidal anti-inflammatories (NSAID); Z79.51 Long term (current) use of inhaled steroids; Z79.4 Long term (current) use of insulin; Z79.899 Other long term (current) drug therapy

== ENCOUNTER 2024-03-15 08:46 | Emergency (ER) | payer OTHER ==
[~2024-03-15] VITALS: Ht 167.6 cm; Wt 120.7 kg
[2024-03-15 09:43] LABS: BASO % 0.3 % (0.0-1.0); EOS # 0.2 10^3/uL (0.0-0.5); EOS % 1.5 % (0.0-3.0); HEMOGLOBIN 9.8 g/dl (12.0-15.5); LYMPH # 3.7 10^3/uL (1.5-5.0); LYMPH % 29.9 % (24.0-44.0); MEAN CORPUSCULAR HEMOGLOBIN 26.8 pg (27.0-33.0); MEAN CORPUSCULAR HGB CONC 30.6 g/dl (32.0-36.5); MEAN CORPUSCULAR VOLUME 87.4 fl (80.0-96.0); MONO # 0.8 10^3/uL (0.0-0.8); MONO % 6.5 % (2.0-8.0); NEUTROPHILS # 7.6 10^3/uL (1.5-8.5); NEUTROPHILS % 61.4 % (36.0-66.0); PLATELET COUNT, AUTOMATED 355 10^3/uL (150-450); RED BLOOD COUNT 3.66 10^6/uL (4.00-5.40); WHITE BLOOD COUNT 12.4 10^3/uL (4.0-10.0)
[2024-03-15 09:45] VITALS: BP 150/81
[2024-03-15 09:46] VITALS: TEMP 98.6
[2024-03-15 09:56] VITALS: O2SAT 100
[2024-03-15] MEDS: MORPHINE 2 MG/ML 1ML VIAL IV ONE (09:56)
[2024-03-15 10:06] LABS: BLOOD UREA NITROGEN 32 MG/DL (9-23); CALCIUM LEVEL 9.5 MG/DL (8.5-10.1); CARBON DIOXIDE LEVEL 26 MMOL/L (20-31); CHLORIDE LEVEL 106 MMOL/L (98-107); CREATININE FOR GFR 0.83 MG/DL (0.55-1.30); GLOMERULAR FILTRATION RATE > 60.0 (>58); GLUCOSE, FASTING 181 MG/DL (60-100); POTASSIUM SERUM 5.5 MMOL/L (3.5-5.1); SODIUM LEVEL 139 MMOL/L (136-145)
== END 2024-03-15 10:05 | disposition short-term general hospital (02) ==
LOC: M ED 08:46
DX: J95.01 Hemorrhage from tracheostomy stoma (principal); F17.210 Nicotine dependence, cigarettes, uncomplicated; I10 Essential (primary) hypertension; Z88.8 Allergy status to other drugs, medicaments and biological substances; Z79.1 Long term (current) use of non-steroidal anti-inflammatories (NSAID); Z79.51 Long term (current) use of inhaled steroids; Z79.4 Long term (current) use of insulin; Z79.899 Other long term (current) drug therapy

== ENCOUNTER 2024-03-15 22:19 | Emergency (ER) | payer OTHER ==
[~2024-03-15] VITALS: Ht 170.2 cm; Wt 127.6 kg
[~2024-03-15 22:19] MED LIST changes: +DOXY-323 PO; +DOXY-440 PO; -DOXY-443 PO; -DOXY-444 PO
[2024-03-16 03:02] VITALS: BP 134/68; TEMP 97.2; O2SAT 99
== END 2024-03-16 03:03 | disposition home or self-care (01) ==
LOC: M ED 22:19
DX: Z93.0 Tracheostomy status (principal); I50.22 Chronic systolic (congestive) heart failure; E11.9 Type 2 diabetes mellitus without complications; I11.0 Hypertensive heart disease with heart failure; Z88.8 Allergy status to other drugs, medicaments and biological substances

== ENCOUNTER → 2024-04-27 | Outpatient (REF) | payer OTHER | LOC: M LAB REF 17:16 | PROVIDERS: ATTEND Otolaryngology | DX: Z93.0 Tracheostomy status (principal) ==

== ENCOUNTER 2024-05-08 13:58 | Emergency (ER) | payer OTHER ==
[~2024-05-08] VITALS: Ht 167.6 cm; Wt 119.8 kg
[2024-05-08 16:01] LABS: BASO % 0.4 % (0.0-1.0); EOS # 0.2 10^3/uL (0.0-0.5); EOS % 1.5 % (0.0-3.0); HEMATOCRIT 34.5 % (36.0-47.0); HEMOGLOBIN 10.7 g/dl (12.0-15.5); LYMPH # 2.2 10^3/uL (1.5-5.0); LYMPH % 19.9 % (24.0-44.0); MEAN CORPUSCULAR HEMOGLOBIN 27.4 pg (27.0-33.0); MEAN CORPUSCULAR VOLUME 88.2 fl (80.0-96.0); MONO # 0.8 10^3/uL (0.0-0.8); NEUTROPHILS # 7.9 10^3/uL (1.5-8.5); NEUTROPHILS % 70.5 % (36.0-66.0); RED BLOOD COUNT 3.91 10^6/uL (4.00-5.40); WHITE BLOOD COUNT 11.3 10^3/uL (4.0-10.0)
[2024-05-08] MEDS: CIPROFLOXACIN 500MG TABLET PO ONE (16:01)
[2024-05-08 16:27] LABS: BLOOD UREA NITROGEN 25 MG/DL (9-23); CARBON DIOXIDE LEVEL 27 MMOL/L (20-31); CHLORIDE LEVEL 104 MMOL/L (98-107); CREATININE FOR GFR 0.89 MG/DL (0.55-1.30); GLOMERULAR FILTRATION RATE > 60.0 (>58); GLUCOSE, FASTING 235 MG/DL (60-100); SODIUM LEVEL 139 MMOL/L (136-145)
[2024-05-08 16:29] LABS: ERYTHROCYTE SEDIMENTATION RATE 108 mm/hr (0-20)
[2024-05-08] MEDS ORDERED: PROHANCE 279.3MG/ML 5ML VIAL As Ordered ONE (17:49)
[2024-05-08] MEDS ORDERED: PROHANCE 279.3MG/ML 15ML VIAL As Ordered ONE (17:49)
[2024-05-08] MEDS ORDERED: VANCOMYCIN HCL 2,000 MG in IV FLUID PLACE HOLDER 1 EA IV ONE (22:20)
[2024-05-08] MEDS: PIPERACILLIN/TAZOBACTAM SOD 3.375 GM in D5W MINI-BAG PLUS 50 ML IV ONE (22:31)
[2024-05-08] MEDS: VANCOMYCIN HCL 1,000 MG, VIAL MATE ADAPTER 1 EACH in D5W 250 ML IV ONE (23:14)
[2024-05-09] MEDS: VANCOMYCIN HCL 1,000 MG, VIAL MATE ADAPTER 1 EACH in D5W 250 ML IV ONE (01:53)
[2024-05-09] MEDS: ACETAMINOPHEN 500 MG TAB PO ONE (01:53)
[2024-05-09 02:31] VITALS: BP 184/76; TEMP 97.9; O2SAT 98
[2024-05-09] MEDS ORDERED: PIPERACILLIN/TAZOBACTAM SOD 4.5 GM in D5W MINI-BAG PLUS 50 ML IV SCH (05:00)
[2024-05-09] MEDS ORDERED: VANCOMYCIN HCL 1,000 MG, VIAL MATE ADAPTER 1 EACH in D5W 250 ML IV SCH ×2 (06:30→10:00)
== END 2024-05-09 02:36 | disposition short-term general hospital (02) ==
LOC: M ED 13:58
DX: M86.172 Other acute osteomyelitis, left ankle and foot (principal); S91.131A Puncture wound without foreign body of right great toe without damage to nail, initial encounter; Y92.9 Unspecified place or not applicable; Y93.9 Activity, unspecified; Y99.9 Unspecified external cause status; W18.41XA Slipping, tripping and stumbling without falling due to stepping on object, initial encounter; I50.22 Chronic systolic (congestive) heart failure; E10.9 Type 1 diabetes mellitus without complications; I11.0 Hypertensive heart disease with heart failure; E78.5 Hyperlipidemia, unspecified; K21.9 Gastro-esophageal reflux disease without esophagitis; Z88.8 Allergy status to other drugs, medicaments and biological substances; Z91.048 Other nonmedicinal substance allergy status; Z93.0 Tracheostomy status; Z79.1 Long term (current) use of non-steroidal anti-inflammatories (NSAID); Z79.51 Long term (current) use of inhaled steroids; Z79.4 Long term (current) use of insulin; Z79.899 Other long term (current) drug therapy
CPT/HCPCS: 73630; 73720; 80048; 85025; 85652; 86140; 96365; 96366; 99284; A9576; J2543; J3370

== ENCOUNTER → 2024-05-28 | Outpatient (CLI) | payer OTHER | LOC: M WHC 11:37 | PROVIDERS: ATTEND Nurse Practitioner | DX: R60.9 Edema, unspecified (principal) ==

== ENCOUNTER 2024-06-27 02:07 | Emergency (ER) | payer OTHER ==
[~2024-06-27] VITALS: Ht 167.6 cm; Wt 118.2 kg
[2024-06-27 05:00] VITALS: BP 151/75; TEMP 98.7; O2SAT 95
== END 2024-06-27 05:20 | disposition home or self-care (01) ==
LOC: M ED 02:07 → EDBD 02:07 → M ED 05:20
DX: R06.00 Dyspnea, unspecified (principal); I11.0 Hypertensive heart disease with heart failure; E11.9 Type 2 diabetes mellitus without complications; E78.5 Hyperlipidemia, unspecified; E03.9 Hypothyroidism, unspecified; Z88.8 Allergy status to other drugs, medicaments and biological substances; Z91.048 Other nonmedicinal substance allergy status; Z79.1 Long term (current) use of non-steroidal anti-inflammatories (NSAID); Z79.51 Long term (current) use of inhaled steroids; Z79.4 Long term (current) use of insulin; Z79.899 Other long term (current) drug therapy

== ENCOUNTER 2024-07-09 18:11 | Emergency (ER) | payer OTHER ==
[~2024-07-09] VITALS: Ht 170.2 cm; Wt 123.6 kg
[2024-07-09 19:50] LABS: BASO # 0.1 10^3/uL (0.0-0.2); BASO % 0.4 % (0.0-1.0); EOS # 0.2 10^3/uL (0.0-0.5); EOS % 1.4 % (0.0-3.0); HEMATOCRIT 33.9 % (36.0-47.0); HEMOGLOBIN 10.4 g/dl (12.0-15.5); LYMPH # 2.8 10^3/uL (1.5-5.0); LYMPH % 21.1 % (24.0-44.0); MEAN CORPUSCULAR HEMOGLOBIN 27.4 pg (27.0-33.0); MEAN CORPUSCULAR HGB CONC 30.7 g/dl (32.0-36.5); MEAN CORPUSCULAR VOLUME 89.2 fl (80.0-96.0); MONO # 1.1 10^3/uL (0.0-0.8); MONO % 8.3 % (2.0-8.0); NEUTROPHILS % 68.3 % (36.0-66.0); PLATELET COUNT, AUTOMATED 404 10^3/uL (150-450); WHITE BLOOD COUNT 13.2 10^3/uL (4.0-10.0)
[2024-07-09 20:20] LABS: CK-MB VALUE MASS < 1.0 NG/ML (<3.6)
[2024-07-09 20:22] LABS: BLOOD UREA NITROGEN 27 MG/DL (9-23); CALCIUM LEVEL 9.5 MG/DL (8.5-10.1); CARBON DIOXIDE LEVEL 26 MMOL/L (20-31); CHLORIDE LEVEL 108 MMOL/L (98-107); CPK CREATINE PHOSPHOKINASE 42 U/L (34-145); CREATININE FOR GFR 1.09 MG/DL (0.55-1.30); GLOMERULAR FILTRATION RATE 58.1 (>58); GLUCOSE, FASTING 126 MG/DL (60-100); MB/CK RELATIVE INDEX 2.38 (< OR =4); POTASSIUM SERUM 4.2 MMOL/L (3.5-5.1); SODIUM LEVEL 138 MMOL/L (136-145)
[2024-07-09] MEDS ORDERED: CYCL-707 PO (21:00)
[2024-07-09 21:30] VITALS: BP 121/57; O2SAT 97
[2024-07-09 21:40] LABS: CK-MB VALUE MASS < 1.0 NG/ML (<3.6)
[2024-07-09 21:41] LABS: CPK CREATINE PHOSPHOKINASE 39 U/L (34-145); MB/CK RELATIVE INDEX 2.56 (< OR =4)
== END 2024-07-09 22:04 | disposition home or self-care (01) ==
LOC: EDBD 18:11 → M ED 18:11
DX: M94.0 Chondrocostal junction syndrome [Tietze] (principal); R07.89 Other chest pain; E11.9 Type 2 diabetes mellitus without complications; K21.9 Gastro-esophageal reflux disease without esophagitis; I10 Essential (primary) hypertension; E03.9 Hypothyroidism, unspecified; Z88.8 Allergy status to other drugs, medicaments and biological substances; Z79.1 Long term (current) use of non-steroidal anti-inflammatories (NSAID); Z79.51 Long term (current) use of inhaled steroids; Z79.4 Long term (current) use of insulin; Z79.899 Other long term (current) drug therapy

== ENCOUNTER 2024-09-20 21:48 | Emergency (ER) | payer OTHER ==
[~2024-09-20] VITALS: Ht 167.6 cm; Wt 121.0 kg
[~2024-09-20 21:48] MED LIST changes: +CYCL-707 PO; -DOXY-323 PO; +DOXY-441 PO; +GABA-1490 PO; -GABA600T4 PO
[2024-09-20 22:29] LABS: VENOUS BASE EXCESS -2.1 (-2.0-2.0); VENOUS O2 SATURATION 95.6 % (60.0-80.0); VENOUS PARTIAL PRESSURE CO2 40.6 mmHg (38.0-50.0); VENOUS PARTIAL PRESSURE O2 85.5 mmHg (30.0-50.0); VENOUS PH 7.371 UNITS (7.330-7.430); VENOUS STANDARD HCO3 22.7 MMOL/L; VENOUS TOTAL CO2 24.2 MMOL/L (24.0-28.0)
[2024-09-20 22:38] LABS: BASO % 0.3 % (0.0-1.0); EOS # 0.1 10^3/uL (0.0-0.5); EOS % 1.2 % (0.0-3.0); HEMATOCRIT 30.8 % (36.0-47.0); HEMOGLOBIN 9.7 g/dl (12.0-15.5); LYMPH % 26.2 % (24.0-44.0); MEAN CORPUSCULAR HGB CONC 31.5 g/dl (32.0-36.5); MEAN CORPUSCULAR VOLUME 88.8 fl (80.0-96.0); MONO # 0.6 10^3/uL (0.0-0.8); MONO % 8.2 % (2.0-8.0); NEUTROPHILS # 4.9 10^3/uL (1.5-8.5); NEUTROPHILS % 63.7 % (36.0-66.0); PLATELET COUNT, AUTOMATED 297 10^3/uL (150-450); RED BLOOD COUNT 3.47 10^6/uL (4.00-5.40); WHITE BLOOD COUNT 7.7 10^3/uL (4.0-10.0)
[2024-09-20 23:02] LABS: CPK CREATINE PHOSPHOKINASE 82 U/L (34-145)
[2024-09-20 23:03] LABS: ALBUMIN 3.1 G/DL (3.2-5.2); ALKALINE PHOSPHATASE 91 U/L (35-104); ALT/SGPT 14 U/L (7.0-40); AST/SGOT < 8 U/L (<34); BILIRUBIN,DIRECT < 0.1 MG/DL (<0.4); BILIRUBIN,TOTAL < 0.2 MG/DL (0.3-1.2); BLOOD UREA NITROGEN 20 MG/DL (9-23); CARBON DIOXIDE LEVEL 24 MMOL/L (20-31); CHLORIDE LEVEL 108 MMOL/L (98-107); CK-MB VALUE MASS 1.4 NG/ML (<3.6); CREATININE FOR GFR 0.98 MG/DL (0.55-1.30); GLOMERULAR FILTRATION RATE > 60.0 (>58); GLUCOSE, FASTING 138 MG/DL (60-100); POTASSIUM SERUM 3.7 MMOL/L (3.5-5.1); SODIUM LEVEL 140 MMOL/L (136-145); TOTAL PROTEIN 7.3 G/DL (5.7-8.2)
[2024-09-20 23:04] LABS: THYROID STIMULATING HORMONE 1.116 uIU/ML (0.55-4.78); THYROXINE (T4) 12.9 UG/DL (4.5-10.9)
[2024-09-20 23:39] VITALS: BP 157/69; TEMP 97.8
[2024-09-20 23:43] LABS: INR 0.91; PARTIAL THROMBOPLASTIN TIME 30.6 SECONDS (24.8-34.2); PROTHROMBIN TIME 12.6 SECONDS (12.5-14.5)
[2024-09-21] MEDS: IPRATROPIUM 0.5MG/ALBUTEROL 2.5MG INH SOL UD 3ML (DUONEB) NEB ONE (00:08)
[2024-09-21 00:30] VITALS: O2SAT 99
[2024-09-21] MEDS ORDERED: PRED20TA PO (00:51)
[2024-09-21] MEDS ORDERED: NIRM1TAB14 PO (00:51)
[2024-09-21] MEDS: predniSONE 20 MG TAB PO ONE (01:05)
== END 2024-09-21 01:18 | disposition home or self-care (01) ==
LOC: M ED 21:48 → EDBD 21:48 → M ED 09-21 01:18
DX: U07.1 COVID-19 (principal); R06.00 Dyspnea, unspecified; R04.2 Hemoptysis; E11.9 Type 2 diabetes mellitus without complications; I10 Essential (primary) hypertension; K21.9 Gastro-esophageal reflux disease without esophagitis; M79.7 Fibromyalgia; J44.9 Chronic obstructive pulmonary disease, unspecified; Z98.84 Bariatric surgery status; Z86.79 Personal history of other diseases of the circulatory system; Z88.8 Allergy status to other drugs, medicaments and biological substances; Z91.048 Other nonmedicinal substance allergy status; Z79.1 Long term (current) use of non-steroidal anti-inflammatories (NSAID); Z79.52 Long term (current) use of systemic steroids; Z79.4 Long term (current) use of insulin; Z79.899 Other long term (current) drug therapy
CPT/HCPCS: 36415; 71046; 80048; 80076; 82550; 82553; 82803; 83880; 84436; 84443; 84484; 85025; 85610; 85730; 87040; 87486; 87581; 87633; 87798; 87880; 93005; 93041; 94640; 94760; 99285; J7512

== ENCOUNTER → 2024-09-25 | Outpatient (REF) | payer OTHER ==
[~2024-09-25] MED LIST changes: +NIRM1TAB14 PO
[2024-09-30 13:57] LABS: HPV APTIMA Not Detected (Not Detected)
== END ==
LOC: M SFHCWAGY 17:17
PROVIDERS: ATTEND Nurse Practitioner Family
DX: Z12.4 Encounter for screening for malignant neoplasm of cervix (principal); L85.9 Epidermal thickening, unspecified

== ENCOUNTER 2024-10-26 01:03 | Emergency (ER) | payer OTHER ==
[~2024-10-26] VITALS: Ht 167.6 cm; Wt 95.0 kg
[2024-10-26 02:00] VITALS: TEMP 97.8
[2024-10-26 03:57] LABS: BLOOD UREA NITROGEN 24 MG/DL (9-23); CALCIUM LEVEL 8.7 MG/DL (8.5-10.1); CARBON DIOXIDE LEVEL 26 MMOL/L (20-31); CHLORIDE LEVEL 108 MMOL/L (98-107); CREATININE FOR GFR 1.03 MG/DL (0.55-1.30); GLOMERULAR FILTRATION RATE > 60.0 (>58); GLUCOSE, FASTING 80 MG/DL (60-100); MAGNESIUM LEVEL 2.1 MG/DL (1.8-2.4); PHOSPHORUS LEVEL 3.7 MG/DL (2.5-4.9); POTASSIUM SERUM 4.2 MMOL/L (3.5-5.1); SODIUM LEVEL 142 MMOL/L (136-145)
[2024-10-26 04:00] VITALS: BP 137/58; O2SAT 98
[2024-10-26] MEDS ORDERED: CALC1TAB91 PO (04:14)
[2024-10-26] MEDS ORDERED: CEPH500C PO (04:35)
[2024-10-26] MEDS: CALCIUM/VITAMIN D 500 MG TAB PO STA (04:48)
== END 2024-10-26 04:51 | disposition home or self-care (01) ==
LOC: M ED 01:03 → EDBD 01:03 → M ED 04:51
DX: R22.42 Localized swelling, mass and lump, left lower limb (principal); E11.9 Type 2 diabetes mellitus without complications; I10 Essential (primary) hypertension; K21.9 Gastro-esophageal reflux disease without esophagitis; E03.9 Hypothyroidism, unspecified; Z88.8 Allergy status to other drugs, medicaments and biological substances; Z79.1 Long term (current) use of non-steroidal anti-inflammatories (NSAID); Z79.51 Long term (current) use of inhaled steroids; Z79.2 Long term (current) use of antibiotics; Z79.4 Long term (current) use of insulin; Z79.52 Long term (current) use of systemic steroids; Z79.899 Other long term (current) drug therapy

== ENCOUNTER → 2024-11-25 | Outpatient (CLI) | payer OTHER ==
[~2024-11-25] MED LIST changes: +CALC1TAB91 PO
== END ==
LOC: M RAD 11:45
PROVIDERS: ATTEND Podiatrist Foot & Ankle Surgery
DX: I73.89 Other specified peripheral vascular diseases (principal)

== ENCOUNTER 2024-11-27 21:47 | Emergency (ER) | payer OTHER ==
[~2024-11-27] VITALS: Ht 167.6 cm; Wt 126.4 kg
[2024-11-28 02:30] VITALS: TEMP 98.6
[2024-11-28] MEDS: LORazepam 2 MG/ML 1ML VIAL IV STA (04:17)
[2024-11-28 04:38] LABS: BASO % 0.4 % (0.0-1.0); EOS # 0.2 10^3/uL (0.0-0.5); EOS % 1.5 % (0.0-3.0); HEMATOCRIT 31.5 % (36.0-47.0); HEMOGLOBIN 9.7 g/dl (12.0-15.5); LYMPH # 3.5 10^3/uL (1.5-5.0); MEAN CORPUSCULAR HEMOGLOBIN 27.3 pg (27.0-33.0); MEAN CORPUSCULAR HGB CONC 30.8 g/dl (32.0-36.5); MEAN CORPUSCULAR VOLUME 88.7 fl (80.0-96.0); MONO # 0.7 10^3/uL (0.0-0.8); MONO % 6.3 % (2.0-8.0); NEUTROPHILS # 6.8 10^3/uL (1.5-8.5); NEUTROPHILS % 60.5 % (36.0-66.0); PLATELET COUNT, AUTOMATED 346 10^3/uL (150-450); RED BLOOD COUNT 3.55 10^6/uL (4.00-5.40); WHITE BLOOD COUNT 11.2 10^3/uL (4.0-10.0)
[2024-11-28 04:57] LABS: CK-MB VALUE MASS 1.5 NG/ML (<3.6)
[2024-11-28 04:59] LABS: ALBUMIN 3.1 G/DL (3.2-5.2); ALKALINE PHOSPHATASE 73 U/L (35-104); ALT/SGPT 13 U/L (7.0-40); AST/SGOT 17 U/L (<34); BILIRUBIN,DIRECT < 0.1 MG/DL (<0.4); BILIRUBIN,TOTAL 0.2 MG/DL (0.3-1.2); BLOOD UREA NITROGEN 17 MG/DL (9-23); CARBON DIOXIDE LEVEL 26 MMOL/L (20-31); CHLORIDE LEVEL 107 MMOL/L (98-107); CREATININE FOR GFR 0.85 MG/DL (0.55-1.30); GLOMERULAR FILTRATION RATE > 60.0 (>58); GLUCOSE, FASTING 95 MG/DL (60-100); POTASSIUM SERUM 4.3 MMOL/L (3.5-5.1); SODIUM LEVEL 144 MMOL/L (136-145); TOTAL PROTEIN 6.8 G/DL (5.7-8.2)
[2024-11-28 05:01] LABS: CPK CREATINE PHOSPHOKINASE 83 U/L (34-145)
[2024-11-28 05:24] LABS: C REACTIVE PROTEIN QUANTITATIV 2.68 MG/DL (<1.0)
[2024-11-28 07:00] VITALS: O2SAT 95
[2024-11-28 07:06] LABS: CK-MB VALUE MASS < 1.0 NG/ML (<3.6)
[2024-11-28 07:07] LABS: CPK CREATINE PHOSPHOKINASE 66 U/L (34-145); MB/CK RELATIVE INDEX 1.51 (< OR =4)
[2024-11-28 08:10] VITALS: BP 178/79
== END 2024-11-28 08:18 | disposition home or self-care (01) ==
LOC: M ED 21:47
DX: R22.42 Localized swelling, mass and lump, left lower limb (principal); I25.2 Old myocardial infarction; I50.22 Chronic systolic (congestive) heart failure; E11.9 Type 2 diabetes mellitus without complications; I11.0 Hypertensive heart disease with heart failure; J44.9 Chronic obstructive pulmonary disease, unspecified; E03.9 Hypothyroidism, unspecified; F41.9 Anxiety disorder, unspecified; F32.A Depression, unspecified; F12.10 Cannabis abuse, uncomplicated; Z88.8 Allergy status to other drugs, medicaments and biological substances; Z79.1 Long term (current) use of non-steroidal anti-inflammatories (NSAID); Z79.51 Long term (current) use of inhaled steroids; Z79.4 Long term (current) use of insulin; Z79.52 Long term (current) use of systemic steroids; Z79.899 Other long term (current) drug therapy
CPT/HCPCS: 71045; 80048; 80076; 82550; 82553; 83605; 84484; 85025; 86140; 87486; 87581; 87633; 87798; 93005; 93041; 93971; 94760; 96374; 99285; J2060

== ENCOUNTER 2024-12-26 20:06 | Emergency (ER) | payer OTHER ==
[~2024-12-26] VITALS: Ht 170.2 cm; Wt 119.5 kg
[2024-12-26 21:07] LABS: BASO # 0.1 10^3/uL (0.0-0.2); BASO % 0.3 % (0.0-1.0); EOS # 0.2 10^3/uL (0.0-0.5); EOS % 1.5 % (0.0-3.0); HEMATOCRIT 31.3 % (36.0-47.0); HEMOGLOBIN 9.6 g/dl (12.0-15.5); LYMPH # 3.5 10^3/uL (1.5-5.0); LYMPH % 24.4 % (24.0-44.0); MEAN CORPUSCULAR HEMOGLOBIN 27.4 pg (27.0-33.0); MEAN CORPUSCULAR HGB CONC 30.7 g/dl (32.0-36.5); MEAN CORPUSCULAR VOLUME 89.4 fl (80.0-96.0); MONO # 0.9 10^3/uL (0.0-0.8); MONO % 6.4 % (2.0-8.0); NEUTROPHILS # 9.6 10^3/uL (1.5-8.5); WHITE BLOOD COUNT 14.3 10^3/uL (4.0-10.0)
[2024-12-26] MEDS: PANTOPRAZOLE 40MG TAB (PROTONIX) PO ONE (21:11)
[2024-12-26] MEDS: ASPIRIN 81MG CHEW TABLET PO ONE (21:11)
[2024-12-26 21:16] LABS: CK-MB VALUE MASS 1.1 NG/ML (<3.6); LIPASE 32 U/L (12-53)
[2024-12-26 21:18] LABS: ALBUMIN 3.2 G/DL (3.2-5.2); ALKALINE PHOSPHATASE 76 U/L (35-104); ALT/SGPT 14 U/L (7.0-40); AST/SGOT 13 U/L (<34); BILIRUBIN,DIRECT < 0.1 MG/DL (<0.4); BILIRUBIN,TOTAL 0.2 MG/DL (0.3-1.2); BLOOD UREA NITROGEN 29 MG/DL (9-23); CALCIUM LEVEL 8.9 MG/DL (8.5-10.1); CARBON DIOXIDE LEVEL 25 MMOL/L (20-31); CHLORIDE LEVEL 106 MMOL/L (98-107); CPK CREATINE PHOSPHOKINASE 67 U/L (34-145); CREATININE FOR GFR 1.15 MG/DL (0.55-1.30); GLOMERULAR FILTRATION RATE 54.6 (>58); GLUCOSE, FASTING 120 MG/DL (60-100); MB/CK RELATIVE INDEX 1.64 (< OR =4); POTASSIUM SERUM 4.1 MMOL/L (3.5-5.1); SODIUM LEVEL 141 MMOL/L (136-145)
[2024-12-26 22:52] LABS: CPK CREATINE PHOSPHOKINASE 60 U/L (34-145); MB/CK RELATIVE INDEX 1.66 (< OR =4)
[2024-12-26 23:00] VITALS: BP 157/70; TEMP 97.1; O2SAT 98
== END 2024-12-26 23:15 | disposition home or self-care (01) ==
LOC: M ED 20:06 → EDBD 20:06 → M ED 23:15
DX: R07.9 Chest pain, unspecified (principal); I10 Essential (primary) hypertension; Z98.84 Bariatric surgery status; Z88.8 Allergy status to other drugs, medicaments and biological substances; Z91.048 Other nonmedicinal substance allergy status

== ENCOUNTER → 2025-01-05 | Outpatient (CLI) | payer OTHER | LOC: M RAD 14:33 | PROVIDERS: ATTEND Surgery | DX: T14.8XXA Other injury of unspecified body region, initial encounter (principal) ==

== ENCOUNTER → 2025-01-05 | Outpatient (CLI) | payer OTHER | LOC: M RAD 14:29 | PROVIDERS: ATTEND Nurse Practitioner Family | DX: R91.1 Solitary pulmonary nodule (principal) ==

== ENCOUNTER 2025-01-22 01:27 | Emergency (ER) | payer OTHER ==
[2025-01-22 01:29] VITALS: TEMP 96
[2025-01-22 03:35] LABS: BASO % 0.4 % (0.0-1.0); EOS # 0.2 10^3/uL (0.0-0.5); HEMATOCRIT 28.3 % (36.0-47.0); HEMOGLOBIN 8.6 g/dl (12.0-15.5); LYMPH # 3.2 10^3/uL (1.5-5.0); LYMPH % 29.3 % (24.0-44.0); MEAN CORPUSCULAR HEMOGLOBIN 26.7 pg (27.0-33.0); MEAN CORPUSCULAR HGB CONC 30.4 g/dl (32.0-36.5); MEAN CORPUSCULAR VOLUME 87.9 fl (80.0-96.0); MONO # 0.9 10^3/uL (0.0-0.8); MONO % 7.9 % (2.0-8.0); NEUTROPHILS # 6.4 10^3/uL (1.5-8.5); NEUTROPHILS % 59.7 % (36.0-66.0); PLATELET COUNT, AUTOMATED 420 10^3/uL (150-450); RED BLOOD COUNT 3.22 10^6/uL (4.00-5.40); WHITE BLOOD COUNT 10.8 10^3/uL (4.0-10.0)
[2025-01-22 04:00] VITALS: BP 146/65; O2SAT 95
== END 2025-01-22 04:45 | disposition home or self-care (01) ==
LOC: M ED 01:27
DX: R04.2 Hemoptysis (principal); I50.22 Chronic systolic (congestive) heart failure; E11.9 Type 2 diabetes mellitus without complications; I11.0 Hypertensive heart disease with heart failure; E78.5 Hyperlipidemia, unspecified; F12.10 Cannabis abuse, uncomplicated; Z88.8 Allergy status to other drugs, medicaments and biological substances; Z79.1 Long term (current) use of non-steroidal anti-inflammatories (NSAID); Z79.51 Long term (current) use of inhaled steroids; Z79.2 Long term (current) use of antibiotics; Z79.4 Long term (current) use of insulin; Z79.52 Long term (current) use of systemic steroids; Z79.899 Other long term (current) drug therapy

== ENCOUNTER 2025-01-24 01:46 | Emergency (ER) | payer OTHER ==
[~2025-01-24] VITALS: Ht 167.6 cm; Wt 120.7 kg
[2025-01-24 08:10] LABS: HEMATOCRIT 30.1 % (36.0-47.0); HEMOGLOBIN 9.1 g/dl (12.0-15.5); MEAN CORPUSCULAR HEMOGLOBIN 26.7 pg (27.0-33.0); MEAN CORPUSCULAR HGB CONC 30.2 g/dl (32.0-36.5); MEAN CORPUSCULAR VOLUME 88.3 fl (80.0-96.0); PLATELET COUNT, AUTOMATED 421 10^3/uL (150-450); RED BLOOD COUNT 3.41 10^6/uL (4.00-5.40); WHITE BLOOD COUNT 11.7 10^3/uL (4.0-10.0)
[2025-01-24 08:23] LABS: INR 0.94; PROTHROMBIN TIME 12.9 SECONDS (12.5-14.5)
[2025-01-24] MEDS ORDERED: ISOVUE-370 76% 100ML VIAL As Ordered ONE (09:11)
[2025-01-24 14:57] VITALS: BP 131/61; TEMP 98.1; O2SAT 100
== END 2025-01-24 15:01 | disposition home or self-care (01) ==
LOC: M ED 01:46
DX: J95.09 Other tracheostomy complication (principal); I50.22 Chronic systolic (congestive) heart failure; J44.9 Chronic obstructive pulmonary disease, unspecified; I11.0 Hypertensive heart disease with heart failure; Z88.8 Allergy status to other drugs, medicaments and biological substances; Z79.1 Long term (current) use of non-steroidal anti-inflammatories (NSAID); Z79.51 Long term (current) use of inhaled steroids; Z79.52 Long term (current) use of systemic steroids; Z79.899 Other long term (current) drug therapy
CPT/HCPCS: 36415; 70498; 80047; 85027; 85610; 99285; Q9967

== ENCOUNTER → 2025-02-02 | Outpatient (REF) | payer OTHER ==
[~2025-02-02] MED LIST changes: +ASPI-226 PO; +BUPR-597 PO; +CALC1TAB42 PO; +DILT360C22 PO; +DOXY-442 PO; -DOXY100C82 PO; +INSULANT SC; +IPRA0.00 NEB; +KETO2SHA8 TOP; +LEVO175T2 PO; +LORA-1041 PO; +LOSA50TA28 PO; +MONT10TA97 PO; +POLY510P14 PO; +SODI0.9N3 NEB
== END ==
LOC: M PLALAB 16:05
PROVIDERS: ATTEND Obstetrics & Gynecology
DX: N76.1 Subacute and chronic vaginitis (principal)

== ENCOUNTER 2025-02-03 02:49 | Inpatient (IN) | payer OTHER ==
[~2025-02-03] VITALS: Ht 167.6 cm; Wt 121.0 kg
[~2025-02-03 02:49] MED LIST changes: -ASPI-226 PO; -BUPR-597 PO; -CALC1TAB42 PO; -DILT360C22 PO; -INSULANT SC; -IPRA0.00 NEB; -KETO2SHA8 TOP; -LEVO175T2 PO; -LORA-1041 PO; -LOSA50TA28 PO; -MONT10TA97 PO; -POLY510P14 PO; -SODI0.9N3 NEB
[2025-02-03] MEDS: LEVOTHYROXINE 25MCG TABLET (0.025MG) PO SCH (06:00)
[2025-02-03] MEDS: LEVOTHYROXINE 150MCG TABLET (0.15MG) PO SCH (06:00)
[2025-02-03 07:19] LABS: BASO # 0.1 10^3/uL (0.0-0.2); BASO % 0.4 % (0.0-1.0); EOS # 0.2 10^3/uL (0.0-0.5); EOS % 1.3 % (0.0-3.0); HEMATOCRIT 27.7 % (36.0-47.0); HEMOGLOBIN 8.3 g/dl (12.0-15.5); LYMPH # 3.9 10^3/uL (1.5-5.0); LYMPH % 29.7 % (24.0-44.0); MEAN CORPUSCULAR HEMOGLOBIN 26.2 pg (27.0-33.0); MEAN CORPUSCULAR VOLUME 87.4 fl (80.0-96.0); MONO # 1.2 10^3/uL (0.0-0.8); NEUTROPHILS # 7.7 10^3/uL (1.5-8.5); NEUTROPHILS % 59.1 % (36.0-66.0); PLATELET COUNT, AUTOMATED 386 10^3/uL (150-450); RED BLOOD COUNT 3.17 10^6/uL (4.00-5.40); WHITE BLOOD COUNT 13.1 10^3/uL (4.0-10.0)
[2025-02-03 07:51] LABS: ERYTHROCYTE SEDIMENTATION RATE 66 mm/hr (0-20)
[2025-02-03] MEDS: oxyCODONE 5MG TAB PO ONE (07:53)
[2025-02-03] MEDS: ACETAMINOPHEN 500 MG TAB PO ONE (07:54)
[2025-02-03 08:24] LABS: C REACTIVE PROTEIN QUANTITATIV 7.26 MG/DL (<1.0); CALCIUM LEVEL 8.9 MG/DL (8.5-10.1); CREATININE FOR GFR 1.17 MG/DL (0.55-1.30); GLOMERULAR FILTRATION RATE 53.5 (>58); POTASSIUM SERUM 3.9 MMOL/L (3.5-5.1)
[2025-02-03] MEDS ORDERED: VANCOMYCIN HCL 1,000 MG in IV FLUID PLACE HOLDER 1 EA IV ONE (08:25)
[2025-02-03] MEDS: LanTUS (INSULIN GLARGINE INJ) 1 UNITS/0.01 ML SC SCH (09:00)
[2025-02-03] MEDS: LOSARTAN 50MG TABLET PO SCH (09:00)
[2025-02-03] MEDS: LORATADINE 10 MG TAB PO SCH (09:00)
[2025-02-03] MEDS ORDERED: DEXTROSE 50% 50ML SYRINGE IV PRN ×2 (09:15→18:05)
[2025-02-03] MEDS ORDERED: GLUCOSE 4 GM CHEW PO PRN ×2 (09:15→18:05)
[2025-02-03] MEDS ORDERED: GLUCAGON INJ 1MG VIAL SC PRN ×2 (09:15→18:05)
[2025-02-03] MEDS: cefTRIAXone SOD 2 GM in DEXTROSE 5% (D5W) ADV/MINI-BAG 50 ML IV ONE (09:33)
[2025-02-03] MEDS ORDERED: LEVO175T2 PO (09:49)
[2025-02-03] MEDS ORDERED: KETO2SHA8 TOP (09:49)
[2025-02-03] MEDS ORDERED: LORA-1041 PO (09:49)
[2025-02-03] MEDS ORDERED: ASPI-226 PO (09:49)
[2025-02-03] MEDS ORDERED: IPRA0.00 NEB (09:49)
[2025-02-03] MEDS ORDERED: LOSA50TA28 PO (09:49)
[2025-02-03] MEDS ORDERED: POLY510P14 PO (09:49)
[2025-02-03] MEDS ORDERED: BUPR-597 PO (09:49)
[2025-02-03] MEDS ORDERED: MONT10TA97 PO (09:49)
[2025-02-03] MEDS ORDERED: GABA-1490 PO (09:49)
[2025-02-03] MEDS ORDERED: CALC1TAB42 PO (09:49)
[2025-02-03 09:50] LABS: PROCALCITONIN 0.04 ng/ml
[2025-02-03 10:00] LABS: INR 0.99; PARTIAL THROMBOPLASTIN TIME 31.8 SECONDS (24.8-34.2); PROTHROMBIN TIME 13.4 SECONDS (12.5-14.5)
[2025-02-03] MEDS ORDERED: INSULANT SC (10:01)
[2025-02-03] MEDS ORDERED: DILT360C22 PO (10:01)
[2025-02-03] MEDS ORDERED: SODI0.9N3 NEB (10:01)
[2025-02-03] MEDS ORDERED: HOME MED LIST COMPLETE! XX SCH (10:05)
[2025-02-03] MEDS: VANCOMYCIN HCL 2,000 MG, VIAL MATE ADAPTER 1 EACH in NS 500 ML IV ONE (10:46)
[2025-02-03] MEDS ORDERED: MUPIROCIN 2% OINT 22 GM TUBE TOP PRN (10:50)
[2025-02-03 11:03] LABS: MAGNESIUM LEVEL 2.3 MG/DL (1.8-2.4)
[2025-02-03] MEDS: INSULIN LISPRO (NovoLOG) PER UNIT SC SCH ×2 (12:00→20:09)
[2025-02-03] MEDS: dilTIAZem **CD** 180MG CAP PO SCH (14:43)
[2025-02-03] MEDS: ASPIRIN 81MG ENTERIC TABLET PO SCH (14:45)
[2025-02-03] MEDS: FERROUS SULFATE 325MG TAB PO SCH (14:45)
[2025-02-03] MEDS: FUROSEMIDE 40 MG TAB PO SCH (14:46)
[2025-02-03] MEDS: OMEPRAZOLE 20MG CAP PO SCH (14:47)
[2025-02-03] MEDS: GABAPENTIN 300 MG CAP PO SCH (14:47)
[2025-02-03] MEDS: ATORVASTATIN 20 MG TAB PO SCH (14:47)
[2025-02-03] MEDS: buPROPion **XL** TABLET 150MG (WELLBUTRIN XL) PO SCH (14:48)
[2025-02-03] MEDS: PERCOCET 5MG/325MG TAB PO PRN (14:56)
[2025-02-03] MEDS: ACETAMINOPHEN 325 MG TAB PO PRN (14:58)
[2025-02-03] MEDS: PIPERACILLIN/TAZOBACTAM SOD 3.375 GM in DEXTROSE 5% (D5W) ADV/MINI-BAG 50 ML IV SCH (15:04)
[2025-02-03 16:18] VITALS: BP 132/80; TEMP 97.4; O2SAT 96
[2025-02-03 19:51] VITALS: BP 106/62; TEMP 97.7; O2SAT 98
[2025-02-03] MEDS: IPRATROPIUM 0.5MG/ALBUTEROL 2.5MG INH SOL UD 3ML (DUONEB) NEB SCH (20:00)
[2025-02-03] MEDS: FAMOTIDINE 20 MG TAB PO SCH (20:07)
[2025-02-03] MEDS: MONTELUKAST 10 MG TAB PO SCH (20:07)
[2025-02-03] MEDS: VANCOMYCIN HCL 1,000 MG, VIAL MATE ADAPTER 1 EACH in NS 250 ML IV SCH (20:09)
[2025-02-04 06:14] VITALS: BP 111/58; TEMP 97.5; O2SAT 98
[2025-02-04] MEDS: SODIUM CHLORIDE 0.9% 3ML NEB SOLUTION FOR INHALATION INH SCH (07:26)
[2025-02-04 07:37] LABS: HEMATOCRIT 26.4 % (36.0-47.0); MEAN CORPUSCULAR HEMOGLOBIN 26.8 pg (27.0-33.0); MEAN CORPUSCULAR HGB CONC 30.3 g/dl (32.0-36.5); MEAN CORPUSCULAR VOLUME 88.6 fl (80.0-96.0); PLATELET COUNT, AUTOMATED 350 10^3/uL (150-450); RED BLOOD COUNT 2.98 10^6/uL (4.00-5.40); WHITE BLOOD COUNT 11.6 10^3/uL (4.0-10.0)
[2025-02-04] MEDS: INSULIN LISPRO (NovoLOG) PER UNIT SC SCH (07:42)
[2025-02-04 07:58] LABS: ALBUMIN 2.7 G/DL (3.2-5.2); BILIRUBIN,TOTAL 0.2 MG/DL (0.3-1.2); CALCIUM LEVEL 8.6 MG/DL (8.5-10.1); CREATININE FOR GFR 1.37 MG/DL (0.55-1.30); GLOMERULAR FILTRATION RATE 44.6 (>58); POTASSIUM SERUM 4.2 MMOL/L (3.5-5.1); TOTAL PROTEIN 6.7 G/DL (5.7-8.2)
[2025-02-04] MEDS ORDERED: ENOXAPARIN 40MG/0.4ML SYRINGE (J1650 PER 10MG) SC SCH (09:00)
[2025-02-04 11:53] VITALS: BP 116/60; TEMP 97.5; O2SAT 96
[2025-02-04] MEDS: VANCOMYCIN HCL 750 MG, VIAL MATE ADAPTER 1 EACH in NS 250 ML IV SCH (20:19)
[2025-02-04 20:33] VITALS: BP 108/62; TEMP 97.9; O2SAT 96
[2025-02-05 06:18] VITALS: BP 120/62; TEMP 97.7; O2SAT 96
[2025-02-05 08:03] LABS: HEMATOCRIT 25.3 % (36.0-47.0); HEMOGLOBIN 7.5 g/dl (12.0-15.5); MEAN CORPUSCULAR HEMOGLOBIN 26.4 pg (27.0-33.0); MEAN CORPUSCULAR HGB CONC 29.6 g/dl (32.0-36.5); MEAN CORPUSCULAR VOLUME 89.1 fl (80.0-96.0); PLATELET COUNT, AUTOMATED 337 10^3/uL (150-450); RED BLOOD COUNT 2.84 10^6/uL (4.00-5.40); WHITE BLOOD COUNT 9.3 10^3/uL (4.0-10.0)
[2025-02-05 08:19] VITALS: BP 121/62
[2025-02-05 08:26] LABS: ALBUMIN 2.6 G/DL (3.2-5.2); ALKALINE PHOSPHATASE 66 U/L (35-104); ALT/SGPT < 9 U/L (7.0-40); AST/SGOT < 8 U/L (<34); BILIRUBIN,TOTAL 0.2 MG/DL (0.3-1.2); BLOOD UREA NITROGEN 30 MG/DL (9-23); CALCIUM LEVEL 8.6 MG/DL (8.5-10.1); CARBON DIOXIDE LEVEL 25 MMOL/L (20-31); CHLORIDE LEVEL 108 MMOL/L (98-107); CREATININE FOR GFR 1.37 MG/DL (0.55-1.30); GLOMERULAR FILTRATION RATE 44.6 (>58); GLUCOSE, FASTING 126 MG/DL (60-100); POTASSIUM SERUM 4.1 MMOL/L (3.5-5.1); SODIUM LEVEL 145 MMOL/L (136-145); TOTAL PROTEIN 6.8 G/DL (5.7-8.2)
[2025-02-05 10:00] VITALS: BP 126/68; TEMP 97.5; O2SAT 97
[2025-02-05 10:17] VITALS: BP 126/78; TEMP 97.5; O2SAT 97
[2025-02-05 12:08] VITALS: BP 123/58; TEMP 97.2; O2SAT 95
[2025-02-05] MEDS: MIRALAX *UNIT DOSE* 17GM PACKET PO PRN (13:27)
[2025-02-05 20:19] VITALS: BP 126/78; TEMP 97.5
[2025-02-06 05:23] VITALS: BP 119/69; TEMP 97.3; O2SAT 96
[2025-02-06 08:01] LABS: HEMATOCRIT 25.8 % (36.0-47.0); HEMOGLOBIN 7.7 g/dl (12.0-15.5); MEAN CORPUSCULAR HEMOGLOBIN 25.9 pg (27.0-33.0); MEAN CORPUSCULAR HGB CONC 29.8 g/dl (32.0-36.5); MEAN CORPUSCULAR VOLUME 86.9 fl (80.0-96.0); PLATELET COUNT, AUTOMATED 378 10^3/uL (150-450); RED BLOOD COUNT 2.97 10^6/uL (4.00-5.40); WHITE BLOOD COUNT 10.1 10^3/uL (4.0-10.0)
[2025-02-06 08:22] LABS: VANCOMYCIN LEVEL TROUGH 11.7 UG/ML (10.0-20.0)
[2025-02-06 08:23] LABS: ALBUMIN 2.6 G/DL (3.2-5.2); ALKALINE PHOSPHATASE 65 U/L (35-104); ALT/SGPT 10 U/L (7.0-40); AST/SGOT < 8 U/L (<34); BILIRUBIN,TOTAL < 0.2 MG/DL (0.3-1.2); BLOOD UREA NITROGEN 25 MG/DL (9-23); CALCIUM LEVEL 9.5 MG/DL (8.5-10.1); CARBON DIOXIDE LEVEL 24 MMOL/L (20-31); CHLORIDE LEVEL 109 MMOL/L (98-107); CREATININE FOR GFR 1.17 MG/DL (0.55-1.30); GLOMERULAR FILTRATION RATE 53.5 (>58); GLUCOSE, FASTING 122 MG/DL (60-100); POTASSIUM SERUM 4.3 MMOL/L (3.5-5.1); SODIUM LEVEL 145 MMOL/L (136-145); TOTAL PROTEIN 6.8 G/DL (5.7-8.2)
[2025-02-06] MEDS: VANCOMYCIN HCL 750 MG, VIAL MATE ADAPTER 1 EACH in NS 250 ML IV SCH (08:50)
[2025-02-06 12:00] VITALS: BP 134/60; TEMP 97.7
[2025-02-06] MEDS ORDERED: AMOX875T2 PO (14:08)
[2025-02-06] MEDS ORDERED: PROB250C PO (14:08)
[2025-02-06] MEDS ORDERED: TRAM50TA2 PO (14:22)
== END 2025-02-06 14:56 | disposition home or self-care (01) | DRG 344 ==
LOC: M ED 02:49 → M ED INP 02:50 → M MS5PR 15:52 → OBSVTOIN 02-04 14:19
PROVIDERS: ADMIT Internal Medicine; ATTEND Internal Medicine
DX: M86.8X7 Other osteomyelitis, ankle and foot (principal); J38.02 Paralysis of vocal cords and larynx, bilateral; Z93.0 Tracheostomy status; I11.0 Hypertensive heart disease with heart failure; M84.474A Pathological fracture, right foot, initial encounter for fracture; L03.115 Cellulitis of right lower limb; I50.32 Chronic diastolic (congestive) heart failure; Z68.41 Body mass index [BMI] 40.0-44.9, adult; E11.621 Type 2 diabetes mellitus with foot ulcer; E78.5 Hyperlipidemia, unspecified; E03.9 Hypothyroidism, unspecified; M79.7 Fibromyalgia; K21.9 Gastro-esophageal reflux disease without esophagitis; E66.9 Obesity, unspecified; J44.9 Chronic obstructive pulmonary disease, unspecified; L97.519 Non-pressure chronic ulcer of other part of right foot with unspecified severity; M79.661 Pain in right lower leg; L97.529 Non-pressure chronic ulcer of other part of left foot with unspecified severity; Z79.82 Long term (current) use of aspirin; Z79.899 Other long term (current) drug therapy; Z88.8 Allergy status to other drugs, medicaments and biological substances; Z91.048 Other nonmedicinal substance allergy status; Z86.718 Personal history of other venous thrombosis and embolism; Z98.84 Bariatric surgery status; Z89.422 Acquired absence of other left toe(s); Z87.891 Personal history of nicotine dependence; Z79.4 Long term (current) use of insulin

== ENCOUNTER 2025-02-22 22:54 | Emergency (ER) | payer OTHER ==
[~2025-02-22] VITALS: Ht 167.6 cm; Wt 121.1 kg
[~2025-02-22 22:54] MED LIST changes: +AMOX875T2 PO; +ASPI-226 PO; +BUPR-597 PO; +CALC1TAB42 PO; +DILT360C22 PO; +HYDR-3719 PO; +INSULANT SC; +IPRA0.00 NEB; +KETO2SHA8 TOP; +LEVO175T2 PO; +LORA-1041 PO; +LOSA50TA28 PO; +MONT10TA97 PO; +POLY510P14 PO; +PROB250C PO; +SODI0.9N3 NEB; +TRAM50TA2 PO; +VERA360C PO
[2025-02-22 23:06] VITALS: BP 164/71; TEMP 98.9; O2SAT 98
== END 2025-02-22 23:23 | disposition left against medical advice (07) ==
LOC: M ED 22:54
DX: Z53.21 Procedure and treatment not carried out due to patient leaving prior to being seen by health care provider (principal)

== ENCOUNTER 2025-02-24 09:35 | Inpatient (IN) | payer OTHER ==
[~2025-02-24] VITALS: Ht 167.6 cm; Wt 119.3 kg
[2025-02-24] VITALS (8 sets, daily range): BP systolic 111–148; BP diastolic 51–98; TEMP 97.2–97.9; O2SAT 95–99
[~2025-02-24 09:35] MED LIST changes: +ceFAZolin SOD 2 GM IV ONCE IV ONE
[2025-02-24] MEDS ORDERED: MIDAZOLAM INJ 2MG/2ML VIAL As Ordered ONE (09:44)
[2025-02-24] MEDS ORDERED: propofoL 200 MG/20 ML VIAL As Ordered ONE (09:44)
[2025-02-24] MEDS ORDERED: fentaNYL 100 MCG/2 ML INJECTION As Ordered ONE (09:44)
[2025-02-24] MEDS: LR 1,000 ML IV SCH ×2 (10:25→11:30)
[2025-02-24] MEDS: ceFAZolin SOD 3 GM in DEXTROSE 5% (D5W) MINI-BAG PLU 1... IV ONE (10:56)
[2025-02-24] MEDS ORDERED: KETAMINE HCL 200MG/20ML VIAL As Ordered ONE (11:03)
[2025-02-24] MEDS: LIDOCAINE 1% MDV 20ML VIAL As Ordered ONE (11:05)
[2025-02-24] MEDS ORDERED: ACETAMINOPHEN 1000MG/100ML IV BAG As Ordered ONE (11:07)
[2025-02-24] MEDS ORDERED: ONDANSETRON 4MG 2ML VIAL IV PRN (11:30)
[2025-02-24] MEDS ORDERED: fentaNYL 100 MCG/2 ML INJECTION IV PRN (11:30)
[2025-02-24] MEDS ORDERED: MORPHINE 2 MG/ML 1ML VIAL IV PRN (11:30)
[2025-02-24] MEDS: oxyCODONE 5MG TAB PO PRN (11:40)
[2025-02-24] MEDS ORDERED: ceFAZolin SOD 3 GM in DEXTROSE 5% (D5W) MINI-BAG PLU 1... IV ONE (14:35)
[2025-02-24] MEDS: NORCO, ANEXSIA 5/325MG TABLET (HYDROcodone/ACETAMINOPHEN) PO PRN (16:55)
[2025-02-24 17:43] LABS: HEMATOCRIT 27.8 % (36.0-47.0); HEMOGLOBIN 8.4 g/dl (12.0-15.5); MEAN CORPUSCULAR HEMOGLOBIN 26.5 pg (27.0-33.0); MEAN CORPUSCULAR HGB CONC 30.2 g/dl (32.0-36.5); MEAN CORPUSCULAR VOLUME 87.7 fl (80.0-96.0); PLATELET COUNT, AUTOMATED 331 10^3/uL (150-450); RED BLOOD COUNT 3.17 10^6/uL (4.00-5.40); WHITE BLOOD COUNT 10.1 10^3/uL (4.0-10.0)
[2025-02-24] MEDS: ceFAZolin SODIUM 2 GM in DEXTROSE 5% (D5W) ADV/MINI-BAG 50 ML IV SCH (18:06)
[2025-02-24 18:20] LABS: ALBUMIN 2.8 G/DL (3.2-5.2); ALKALINE PHOSPHATASE 63 U/L (35-104); ALT/SGPT 11 U/L (7.0-40); AST/SGOT < 8 U/L (<34); ATYPICAL LYMPH 3 % (0-5); BASOPHILS 2 % (0-1); BILIRUBIN,TOTAL < 0.2 MG/DL (0.3-1.2); BLOOD UREA NITROGEN 23 MG/DL (9-23); CALCIUM LEVEL 8.3 MG/DL (8.5-10.1); CARBON DIOXIDE LEVEL 25 MMOL/L (20-31); CHLORIDE LEVEL 111 MMOL/L (98-107); GLOMERULAR FILTRATION RATE 71.2 (>58); GLUCOSE, FASTING 146 MG/DL (60-100); HYPOCHROMASIA 1+; LYMPHOCYTES 32 % (16-44); MONOCYTES 7 % (0-5); NEUTROPHILS 56 % (28-66); PLATELET ESTIMATE NORMAL (NORMAL); POTASSIUM SERUM 3.9 MMOL/L (3.5-5.1); SODIUM LEVEL 142 MMOL/L (136-145); TOTAL PROTEIN 6.4 G/DL (5.7-8.2)
[2025-02-24 18:23] LABS: ANISOCYTOSIS 1+
[2025-02-24] MEDS ORDERED: ACETAMINOPHEN 650MG ER TAB (TYLENOL ARTHRITIS) PO PRN (18:55)
[2025-02-24] MEDS ORDERED: POLYETHYLENE GLYCOL (MIRALAX) 238GM BOTTLE PO PRN (18:55)
[2025-02-24] MEDS: methocarbamoL 500 MG TAB PO PRN (19:34)
[2025-02-24] MEDS: traMADol 50 MG TAB PO PRN (19:37)
[2025-02-24] MEDS ORDERED: MIRALAX *UNIT DOSE* 17GM PACKET PO PRN (20:10)
[2025-02-24] MEDS: INSULIN LISPRO (NovoLOG) PER UNIT SC SCH (21:00)
[2025-02-24] MEDS: FAMOTIDINE 20 MG TAB PO SCH (21:10)
[2025-02-24] MEDS: FERROUS SULFATE 325MG TAB PO SCH (21:10)
[2025-02-24] MEDS: LanTUS (INSULIN GLARGINE INJ) 1 UNITS/0.01 ML SC SCH (21:11)
[2025-02-24] MEDS ORDERED: GLUCAGON INJ 1MG VIAL SC PRN (22:15)
[2025-02-24] MEDS ORDERED: GLUCOSE 4 GM CHEW PO PRN (22:15)
[2025-02-24] MEDS ORDERED: DEXTROSE 50% 50ML SYRINGE IV PRN (22:15)
[2025-02-25] VITALS (7 sets, daily range): BP systolic 136–158; BP diastolic 53–80; TEMP 96.8–97.7; O2SAT 95–98
[2025-02-25 06:30] LABS: BASO % 0.4 % (0.0-1.0); EOS # 0.2 10^3/uL (0.0-0.5); EOS % 1.9 % (0.0-3.0); HEMATOCRIT 27.4 % (36.0-47.0); HEMOGLOBIN 8.2 g/dl (12.0-15.5); LYMPH # 3.8 10^3/uL (1.5-5.0); LYMPH % 35.9 % (24.0-44.0); MEAN CORPUSCULAR HEMOGLOBIN 26.7 pg (27.0-33.0); MEAN CORPUSCULAR HGB CONC 29.9 g/dl (32.0-36.5); MEAN CORPUSCULAR VOLUME 89.3 fl (80.0-96.0); MONO # 0.8 10^3/uL (0.0-0.8); MONO % 7.7 % (2.0-8.0); NEUTROPHILS # 5.6 10^3/uL (1.5-8.5); NEUTROPHILS % 53.8 % (36.0-66.0); PLATELET COUNT, AUTOMATED 323 10^3/uL (150-450); RED BLOOD COUNT 3.07 10^6/uL (4.00-5.40); WHITE BLOOD COUNT 10.5 10^3/uL (4.0-10.0)
[2025-02-25] MEDS: INSULIN LISPRO (NovoLOG) PER UNIT SC SCH (07:30)
[2025-02-25] MEDS: GABAPENTIN 300 MG CAP PO SCH (08:47)
[2025-02-25] MEDS: ATORVASTATIN 20 MG TAB PO SCH (08:48)
[2025-02-25] MEDS: FUROSEMIDE 80 MG TAB PO SCH (08:48)
[2025-02-25] MEDS: buPROPion **XL** TABLET 150MG (WELLBUTRIN XL) PO SCH (08:48)
[2025-02-25] MEDS: ASPIRIN 81MG ENTERIC TABLET PO SCH (08:48)
[2025-02-25] MEDS: LOSARTAN 50MG TABLET PO SCH (08:49)
[2025-02-25] MEDS: NORCO, ANEXSIA 5/325MG TABLET (HYDROcodone/ACETAMINOPHEN) PO PRN (23:07)
[2025-02-26] VITALS: BP 121/68; TEMP 97.7; O2SAT 97
[2025-02-26 04:37] VITALS: BP 123/69; TEMP 97.3; O2SAT 99
[2025-02-26] MEDS: LEVOTHYROXINE 150MCG TABLET (0.15MG) PO SCH (05:31)
[2025-02-26] MEDS: LEVOTHYROXINE 25MCG TABLET (0.025MG) PO SCH (05:31)
[2025-02-26 06:50] LABS: BASO % 0.3 % (0.0-1.0); EOS # 0.2 10^3/uL (0.0-0.5); HEMATOCRIT 29.6 % (36.0-47.0); HEMOGLOBIN 8.7 g/dl (12.0-15.5); LYMPH # 3.7 10^3/uL (1.5-5.0); LYMPH % 35.7 % (24.0-44.0); MEAN CORPUSCULAR HEMOGLOBIN 26.2 pg (27.0-33.0); MEAN CORPUSCULAR HGB CONC 29.4 g/dl (32.0-36.5); MEAN CORPUSCULAR VOLUME 89.2 fl (80.0-96.0); MONO % 9.8 % (2.0-8.0); NEUTROPHILS # 5.3 10^3/uL (1.5-8.5); NEUTROPHILS % 51.8 % (36.0-66.0); PLATELET COUNT, AUTOMATED 333 10^3/uL (150-450); RED BLOOD COUNT 3.32 10^6/uL (4.00-5.40); WHITE BLOOD COUNT 10.2 10^3/uL (4.0-10.0)
[2025-02-26 07:09] LABS: ALBUMIN 2.8 G/DL (3.2-5.2); ALKALINE PHOSPHATASE 63 U/L (35-104); ALT/SGPT < 9 U/L (7.0-40); AST/SGOT < 8 U/L (<34); BILIRUBIN,TOTAL 0.2 MG/DL (0.3-1.2); BLOOD UREA NITROGEN 18 MG/DL (9-23); CALCIUM LEVEL 8.7 MG/DL (8.5-10.1); CARBON DIOXIDE LEVEL 28 MMOL/L (20-31); CHLORIDE LEVEL 106 MMOL/L (98-107); CREATININE FOR GFR 0.89 MG/DL (0.55-1.30); GLOMERULAR FILTRATION RATE 81.9 (>58); GLUCOSE, FASTING 90 MG/DL (60-100); POTASSIUM SERUM 3.8 MMOL/L (3.5-5.1); SODIUM LEVEL 141 MMOL/L (136-145); TOTAL PROTEIN 6.6 G/DL (5.7-8.2)
[2025-02-26 08:00] VITALS: BP 131/68; TEMP 97.5; O2SAT 99
[2025-02-26 12:36] VITALS: BP 132/68; TEMP 96.6; O2SAT 97
[2025-02-26] MEDS: LevoFLOXacin 750 MG TABLET PO SCH (14:03)
[2025-02-26 20:22] VITALS: BP 118/57; TEMP 96.8; O2SAT 99
[2025-02-27 03:59] VITALS: BP 106/59; TEMP 97.5; O2SAT 96
[2025-02-27 07:37] LABS: HEMATOCRIT 31.3 % (36.0-47.0); HEMOGLOBIN 9.4 g/dl (12.0-15.5); MEAN CORPUSCULAR HEMOGLOBIN 26.3 pg (27.0-33.0); MEAN CORPUSCULAR VOLUME 87.7 fl (80.0-96.0); PLATELET COUNT, AUTOMATED 375 10^3/uL (150-450); RED BLOOD COUNT 3.57 10^6/uL (4.00-5.40); WHITE BLOOD COUNT 10.6 10^3/uL (4.0-10.0)
[2025-02-27 08:11] LABS: LYMPHOCYTES 32 % (16-44); MONOCYTES 5 % (0-5); NEUTROPHILS 63 % (28-66)
[2025-02-27 08:12] LABS: HYPOCHROMASIA 2+
[2025-02-27 08:13] LABS: PLATELET ESTIMATE NORMAL (NORMAL)
[2025-02-27 09:23] VITALS: BP 154/64
[2025-02-27] MEDS ORDERED: LEVO75TAB PO (11:22)
[2025-02-27] MEDS ORDERED: METH-1164 PO (11:22)
[2025-02-27] MEDS ORDERED: ACET650T61 PO (11:23)
[2025-02-27 12:00] VITALS: BP 112/58; TEMP 97.2; O2SAT 98
== END 2025-02-27 13:10 | disposition home or self-care (01) | DRG 314 ==
LOC: M SDC 09:35 → M MS5PR 13:40 → M SDC 14:05
PROVIDERS: ADMIT Podiatrist Foot & Ankle Surgery; ATTEND Podiatrist Foot & Ankle Surgery
PROC: 0Y6P0Z0 Detachment at Right 1st Toe, Complete, Open Approach (ICD-10-PCS; principal; 2025-02-24 11:30)
DX: E11.69 Type 2 diabetes mellitus with other specified complication (principal); I11.0 Hypertensive heart disease with heart failure; I50.32 Chronic diastolic (congestive) heart failure; L97.519 Non-pressure chronic ulcer of other part of right foot with unspecified severity; M86.671 Other chronic osteomyelitis, right ankle and foot; E78.5 Hyperlipidemia, unspecified; J44.9 Chronic obstructive pulmonary disease, unspecified; K21.9 Gastro-esophageal reflux disease without esophagitis; E03.9 Hypothyroidism, unspecified; M79.7 Fibromyalgia; E11.65 Type 2 diabetes mellitus with hyperglycemia; B96.89 Other specified bacterial agents as the cause of diseases classified elsewhere; E66.9 Obesity, unspecified; E11.621 Type 2 diabetes mellitus with foot ulcer; Z79.82 Long term (current) use of aspirin; Z88.8 Allergy status to other drugs, medicaments and biological substances; Z91.048 Other nonmedicinal substance allergy status; Z89.412 Acquired absence of left great toe; Z86.718 Personal history of other venous thrombosis and embolism; Z87.891 Personal history of nicotine dependence; Z79.890 Hormone replacement therapy; Z79.4 Long term (current) use of insulin; Z79.899 Other long term (current) drug therapy

== ENCOUNTER 2025-03-05 17:00 | Emergency (ER) | payer OTHER ==
[~2025-03-05] VITALS: Ht 167.6 cm; Wt 121.2 kg
[~2025-03-05 17:00] MED LIST changes: +ACET650T61 PO; +LEVO75TAB PO; +METH-1164 PO; -ceFAZolin SOD 2 GM IV ONCE IV ONE
[2025-03-05 17:50] LABS: BASO # 0.1 10^3/uL (0.0-0.2); BASO % 0.5 % (0.0-1.0); EOS # 0.2 10^3/uL (0.0-0.5); EOS % 1.8 % (0.0-3.0); HEMATOCRIT 29.9 % (36.0-47.0); LYMPH # 3.1 10^3/uL (1.5-5.0); LYMPH % 28.1 % (24.0-44.0); MEAN CORPUSCULAR HEMOGLOBIN 26.4 pg (27.0-33.0); MEAN CORPUSCULAR HGB CONC 30.1 g/dl (32.0-36.5); MEAN CORPUSCULAR VOLUME 87.7 fl (80.0-96.0); MONO # 0.7 10^3/uL (0.0-0.8); MONO % 6.2 % (2.0-8.0); NEUTROPHILS # 6.9 10^3/uL (1.5-8.5); PLATELET COUNT, AUTOMATED 388 10^3/uL (150-450); RED BLOOD COUNT 3.41 10^6/uL (4.00-5.40)
[2025-03-05 18:07] LABS: CPK CREATINE PHOSPHOKINASE 62 U/L (34-145)
[2025-03-05 18:08] LABS: BLOOD UREA NITROGEN 30 MG/DL (9-23); CALCIUM LEVEL 8.9 MG/DL (8.5-10.1); CARBON DIOXIDE LEVEL 26 MMOL/L (20-31); CHLORIDE LEVEL 106 MMOL/L (98-107); CK-MB VALUE MASS < 1.0 NG/ML (<3.6); GLOMERULAR FILTRATION RATE 63.2 (>58); GLUCOSE, FASTING 141 MG/DL (60-100); MB/CK RELATIVE INDEX 1.61 (< OR =4); POTASSIUM SERUM 4.1 MMOL/L (3.5-5.1); SODIUM LEVEL 142 MMOL/L (136-145)
[2025-03-05 19:01] LABS: CK-MB VALUE MASS < 1.0 NG/ML (<3.6)
[2025-03-05 19:02] LABS: CPK CREATINE PHOSPHOKINASE 67 U/L (34-145); MB/CK RELATIVE INDEX 1.49 (< OR =4)
[2025-03-05 19:23] VITALS: TEMP 98.5
[2025-03-05 20:45] VITALS: O2SAT 100
[2025-03-05 21:01] VITALS: BP 189/81
== END 2025-03-05 21:15 | disposition home or self-care (01) ==
LOC: EDBD 17:00 → EDSEX 17:00 → M ED 17:00
DX: R07.89 Other chest pain (principal); I49.3 Ventricular premature depolarization; E11.9 Type 2 diabetes mellitus without complications; I50.22 Chronic systolic (congestive) heart failure; I11.0 Hypertensive heart disease with heart failure; E78.5 Hyperlipidemia, unspecified; K21.9 Gastro-esophageal reflux disease without esophagitis; F12.10 Cannabis abuse, uncomplicated; Z87.891 Personal history of nicotine dependence; Z88.8 Allergy status to other drugs, medicaments and biological substances; Z79.1 Long term (current) use of non-steroidal anti-inflammatories (NSAID); Z79.2 Long term (current) use of antibiotics; Z79.4 Long term (current) use of insulin; Z79.899 Other long term (current) drug therapy

== ENCOUNTER → 2025-06-25 | Outpatient (CLI) | payer OTHER ==
[~2025-06-25] MED LIST changes: +ACET-1515 PO; -ACET650T15 PO; -BUPR-597 PO; +BUPR-766 PO; +KETO120S5 TOP; -KETO2SHA8 TOP
[2025-06-25 15:42] LABS: CALCIUM LEVEL 8.9 MG/DL (8.5-10.1); CARBON DIOXIDE LEVEL 22.0 MMOL/L (20-31); CHLORIDE LEVEL 110.0 MMOL/L (98-107); CREATININE FOR GFR 1.13 MG/DL (0.55-1.30); GLOMERULAR FILTRATION RATE 61.1 (>58); POTASSIUM SERUM 4.0 MMOL/L (3.5-5.1); SODIUM LEVEL 143.0 MMOL/L (136-145)
== END ==
LOC: M LAB 14:15
PROVIDERS: ATTEND Internal Medicine
DX: I73.9 Peripheral vascular disease, unspecified (principal)

== ENCOUNTER 2025-08-17 00:46 | Emergency (ER) | payer OTHER ==
[~2025-08-17] VITALS: Ht 167.6 cm; Wt 120.0 kg
[~2025-08-17 00:46] MED LIST changes: -NIRM1TAB14 PO; +NIRM1TAB16 PO; -VERA360C PO; +VERA360C6 PO
[2025-08-17 01:47] LABS: BASO # 0.1 10^3/uL (0.0-0.2); BASO % 0.4 % (0.0-1.0); EOS # 0.2 10^3/uL (0.0-0.5); EOS % 1.6 % (0.0-3.0); LYMPH # 3.7 10^3/uL (1.5-5.0); LYMPH % 26.4 % (24.0-44.0); MONO # 1.0 10^3/uL (0.0-0.8); MONO % 6.9 % (2.0-8.0); NEUTROPHILS # 9.0 10^3/uL (1.5-8.5); NEUTROPHILS % 64.3 % (36.0-66.0); PLATELET COUNT, AUTOMATED 367 10^3/uL (150-450)
[2025-08-17 01:57] LABS: C REACTIVE PROTEIN QUANTITATIV 3.19 MG/DL (<1.0); CALCIUM LEVEL 8.9 MG/DL (8.5-10.1); CARBON DIOXIDE LEVEL 22.0 MMOL/L (20-31); CHLORIDE LEVEL 108.0 MMOL/L (98-107); CREATININE FOR GFR 1.18 MG/DL (0.55-1.30); GLOMERULAR FILTRATION RATE 58.1 (>58); POTASSIUM SERUM 4.0 MMOL/L (3.5-5.1); SODIUM LEVEL 141.0 MMOL/L (136-145)
[2025-08-17] MEDS ORDERED: LOPE1CAP5 PO (08:08)
[2025-08-17] MEDS ORDERED: GABA-1171 PO (08:08)
[2025-08-17 10:02] VITALS: BP 145/60; TEMP 97.4; O2SAT 98
== END 2025-08-17 10:12 | disposition home or self-care (01) ==
LOC: M ED 00:46
DX: J02.9 Acute pharyngitis, unspecified (principal); B34.9 Viral infection, unspecified; E11.9 Type 2 diabetes mellitus without complications; I10 Essential (primary) hypertension; J45.909 Unspecified asthma, uncomplicated; J44.9 Chronic obstructive pulmonary disease, unspecified; Z93.0 Tracheostomy status; Z88.8 Allergy status to other drugs, medicaments and biological substances; Z91.048 Other nonmedicinal substance allergy status; Z79.1 Long term (current) use of non-steroidal anti-inflammatories (NSAID); Z79.51 Long term (current) use of inhaled steroids; Z79.4 Long term (current) use of insulin; Z79.899 Other long term (current) drug therapy

== ENCOUNTER → 2025-09-06 | Outpatient (REF) | payer OTHER ==
[~2025-09-06] MED LIST changes: +GABA-1171 PO; +LOPE1CAP5 PO
== END ==
LOC: M SFHCWAGY 17:44
PROVIDERS: ATTEND Student in an Organized Health Care Education/Training Program
DX: N92.1 Excessive and frequent menstruation with irregular cycle (principal)

== ENCOUNTER → 2025-10-26 | Outpatient (CLI) | payer OTHER ==
[~2025-10-26] MED LIST changes: -BACTDSTA PO; +SULF-8 PO
[2025-10-26 18:04] LABS: BASO # 0.1 10^3/uL (0.0-0.2); BASO % 0.4 % (0.0-1.0); EOS # 0.2 10^3/uL (0.0-0.5); EOS % 1.6 % (0.0-3.0); LYMPH # 3.5 10^3/uL (1.5-5.0); LYMPH % 25.9 % (24.0-44.0); MONO # 1.0 10^3/uL (0.0-0.8); MONO % 7.3 % (2.0-8.0); NEUTROPHILS # 8.6 10^3/uL (1.5-8.5); NEUTROPHILS % 64.4 % (36.0-66.0); PLATELET COUNT, AUTOMATED 375 10^3/uL (150-450)
[2025-10-26 18:21] LABS: ALT/SGPT 14.0 U/L (7.0-40); AST/SGOT 18.0 U/L (<34); CALCIUM LEVEL 8.9 MG/DL (8.5-10.1); CARBON DIOXIDE LEVEL 26.0 MMOL/L (20-31); CHLORIDE LEVEL 107.0 MMOL/L (98-107); CREATININE FOR GFR 1.13 MG/DL (0.55-1.30); GLOMERULAR FILTRATION RATE 61.1 (>58); POTASSIUM SERUM 4.7 MMOL/L (3.5-5.1); SODIUM LEVEL 141.0 MMOL/L (136-145)
[2025-10-26 18:24] LABS: INR 1.03
[2025-10-26 18:26] LABS: TOTAL 25(OH) VITAMIN D 87.6 NG/ML (20.0-100.0)
[2025-10-26 18:33] LABS: ESTIMATED AVERAGE GLUCOSE 146.0 MG/DL (60-110)
== END ==
LOC: M LAB 15:50
PROVIDERS: ATTEND Nurse Practitioner Family
DX: Z01.818 Encounter for other preprocedural examination (principal); A41.02 Sepsis due to Methicillin resistant Staphylococcus aureus; E66.9 Obesity, unspecified; J38.3 Other diseases of vocal cords; E13.40 Other specified diabetes mellitus with diabetic neuropathy, unspecified